=== PATIENT | male | born 1950 | race Caucasian/White ===

== ENCOUNTER → 2017-08-23 11:30 | Outpatient (CLI) | payer MEDICARE, SELFPAY ==
--- NOTE | 2017-08-23 | DI.CT.S_ITS ---
PROCEDURE: CT SOFT TISSUE NECK W CON INDICATIONS: NECK MASS TECHNIQUE: After the administration of intravenous contrast, 3.0 mm axial sections acquired from the sella to the aortic arch. Additional oblique axial 3.0 mm sections acquired through the pharynx. 3 mm thick coronal and sagittal reformats were generated. For radiation dose reduction, the following was used: automated exposure control. COMPARISON: [facility], [place], BIOPSY LYMPH NODE, 01/12/2016, 8:50. [facility], [place], SOFT TISSUE HEAD OR NECK, 12/31/2015, 11:49. [facility], CT, SOFT TISSUE NECK W CONTRAST, 03/14/2016, 10:10. FINDINGS: Image quality: / Lymph nodes: No enlarged lymph nodes seen throughout the neck. Vessels: Visualized vasculature appears patent. Neck spaces: The oropharynx, nasopharynx, and pharynx demonstrate no mucosal lesions. The vocal cords, false vocal cords, pyriform sinuses, epiglottis, vallecula, and tongue base all appear normal. Extramucosal spaces appear unremarkable. Glands: The parotid and submandibular glands appear normal on the right, and again noted is a mass lesion at the posterior border of the left parotid gland measuring up to 1.5 cm transverse, 1.8 cm AP and 2.4 cm craniocaudad. This does not represent a significant interval enlargement. Thyroid gland appears normal. Miscellaneous: Visualized brain and orbits appear normal. Lung apices appear clear. Superficial soft tissues appear normal. Bones: No suspicious bony lesions. Visualized sinuses and mastoids appear unremarkable. IMPRESSION: Posterior left parotid gland mass, measuring up to 1.5 x 1.8 x 2.4 cm in maximal transverse, AP and craniocaudad dimensions. No new lesion found. Quality of visualization is mildly limited by metal artifact from the localizing surface marker utilized to assist in identifying the structure. In my opinion ENT consultation for excisional biopsy likely is warranted unless this has already been addressed. Dictated by: Marcial Goodwin M.D. on 08/23/2017 at 13:25 Approved by: Marcial Goodwin M.D. on 08/23/2017 at 13:34
== END ==
PROVIDERS: Family Provider Otolaryngology; PCP Family Medicine; Visit Provider Otolaryngology
DX: R22.1 Localized swelling, mass and lump, neck (principal)
CPT/HCPCS: 70491; Q9967

== ENCOUNTER → 2017-08-27 10:02 | Outpatient (CLI) | payer MEDICARE, SELFPAY ==
--- NOTE | 2017-08-27 | DI.US.S_ITS ---
PROCEDURE: US ABD AORTA ANEURYSM SCREEN INDICATIONS: ABDOMINAL AORTIC ANEURYSM SCREENING TECHNIQUE: Real time scanning was performed of the aorta and iliac arteries, with image documentation. COMPARISON: None. FINDINGS: Aorta: Proximal aortic diameter measures 1.9 cm. Mid-aorta measures 1.9 cm. Distal aortic diameter is 2.1 cm. Iliac arteries: Right common iliac artery measures 0.9 cm. Left common iliac artery measures 0.9 cm. IMPRESSION: Abdominal aorta shows atheromatous plaque without aneurysm. Dictated by: Luis Waddell M.D. on 08/27/2017 at 10:39 Approved by: Luis Waddell M.D. on 08/27/2017 at 10:41
== END ==
PROVIDERS: PCP Family Medicine; Visit Provider Family Medicine
DX: Z13.6 Encounter for screening for cardiovascular disorders (principal); I70.0 Atherosclerosis of aorta
CPT/HCPCS: 76706

== ENCOUNTER → 2022-08-07 15:22 | Outpatient (ROUT) | payer MEDICARE, SELFPAY ==
[2022-08-07 16:09] LABS: Influenza A - CEPHEID Flu A NEGATIVE (NEGATIVE); Influenza B - CEPHEID Flu B NEGATIVE (NEGATIVE); Respiratory Syncytial Virus Negative (Negative)
[2022-08-07 16:49] LABS: COVID-19 CEPHEID 4-PLEX PCR Negative (Negative)
== END ==
PROVIDERS: Visit Provider Family Medicine
DX: R53.83 Other fatigue (principal); R05.1 Acute cough
CPT/HCPCS: 0241U

== ENCOUNTER 2023-08-05 17:07 | Inpatient (IN) | payer MEDICARE, SELFPAY ==
[2023-08-05 17:28] VITALS: BP 105/61; PULSE 87; RESP 19; TEMP 36.2; O2SAT 97; BMI 23.1
--- NOTE | 2023-08-05 17:37 | DI.RAD.S_ITS ---
PROCEDURE: XR CHEST 1V INDICATIONS: chest pain TECHNIQUE: One view of the chest was acquired. COMPARISON: None. FINDINGS: Surgical changes and devices: None. Lungs and pleura: Lungs are clear. No pleural effusions or pneumothorax. Mediastinum: Mediastinal contours appear normal. Heart size is normal. Bones and chest wall: No suspicious bony lesions. Age-appropriate bony degenerative changes are seen. Overlying soft tissues appear unremarkable. IMPRESSION: Portable chest within normal limits for age. Dictated by: David Farias M.D. on 08/05/2023 at 17:18 Approved by: Dvaid Farias M.D. on 08/05/2023 at 17:18
--- NOTE | 2023-08-05 17:37 | EKG_ITS ---
[place] [address] [address] [place] [id number] Test Date: 2023-08-05 Pat Name: Sergei Santoyo Department: [facility] Room: Gender: Male [employer]: DANISH : 1950 Requested By: Order Number: [id number] Reading MD: Jaylen Aquino Measurements Intervals [place] Rate: 82 P: 82 ID: [id number] QRS: -74 QRSD: 80 T: 66 QT: 356 QTc: 415 Interpretive Statements Normal sinus rhythm Left axis deviation Electronically Signed On 08-08-2023 18:31:54 PDT by Jaylen Aquino
[2023-08-05 18:14] LABS: Prothrombin Time 11.8 SECONDS (9.4-12.5)
[2023-08-05 18:15] LABS: Add Manual Diff / Slide Review NO; Basophils Absolute Auto 100 /uL (0-100); Basophils Percent Auto 0.8 % (0-2); Eosinophils Absolute Auto 100 /uL (0-450); Eosinophils Percent Auto 1.1 % (2-4); Hematocrit 42.1 % (41-53); Lymphocytes Absolute Auto 1700 /uL (1100-4500); Lymphocytes Percent Auto 13.1 % (25-40); Mean Corpuscular HGB Conc 33.1 % (30-36); Mean Corpuscular Hemoglobin 30.6 PG (26-34); Mean Corpuscular Volume 92.5 fL (80-100); Monocytes Absolute Auto 1400 /uL (0-900); Monocytes Percent Auto 11.1 % (3-14); Neutrophils Absolute Auto 9400 /uL (1500-7000); Neutrophils Percent Auto 73.9 % (50-75); Platelet Count 150 X10^3/uL (150-400); Red Blood Cell Count 4.56 X10^6/uL (4.5-5.9); Red Cell Distribution Width 14.5 % (11.6-14.8); White Blood Cell Count 12.7 X10^3/uL (4.5-11.0)
[2023-08-05 18:16] LABS: PTT Partial Thromboplastin Tim 34 SECONDS (25.1-36.5)
[2023-08-05 18:18] LABS: Alanine Aminotransferase 25 IU/L (<50); Albumin 4.5 g/dL (3.5-5.0); Albumin Globulin Ratio 1.3 (1.0-2.8); Alkaline Phosphatase 64 U/L (38-126); Aspartate Aminotransferase 48 IU/L (17-59); BUN Creatinine Ratio 23.7 (6-22); Bilirubin Total 0.7 mg/dL (0.2-1.3); Blood Urea Nitrogen 32 mg/dL (9-20); Calcium 9.3 mg/dL (8.4-10.2); Carbon Dioxide 22 mmol/L (22-32); Chloride 109 mmol/L (98-107); Creatine Kinase 676 U/L (55-170); Estimated Glomerular Filt Rate 56 mL/min (>60); Globulin 3.5 g/dL (1.7-4.1); Glucose 109 mg/dL (80-110); HEMOLYSIS < 15 (0-50); Lipase 157 U/L (23-300); Potassium 4.3 mmol/L (3.4-5.1); Sodium 141 mmol/L (137-145)
[2023-08-05 18:29] LABS: Troponin I 0.053 ng/mL (0.01-0.034)
--- NOTE | 2023-08-05 18:31 | ED_ITS ---
HPI - Fall General Chief Complaint: Fall Stated Complaint: Fall after losing balance, unable to walk now Time Seen by Provider: 08/05/23 18:16 History of Present Illness HPI Narrative: Patient is a 72-year-old male history of hypertension hyperlipidemia presenting today with significant left leg pain. He reports that he was walking up a hill he started walking really fast unable to stop when he fell landing on his knee tried to stay on up and then fell backwards on his bottom. He really has been unable to bear weight since. He has been sitting on the couch urinating in a bucket next to him. Not taking his medications because he can not get and walk. He did not hit his head or lose consciousness. He has not on anticoagulation medication but does take aspirin. He has no numbness or tingling. But he is really unable to lift his left leg and bear weight. Daughter at bedside states that the right is also a little bit weak. Sure if he has had fever but he did have chills today. He has no abdominal pain chest pain dizziness lightheadedness or other symptoms. Related Data Home Medications Medication Instructions Recorded Confirmed aspirin 81 mg DAILY 08/05/23 08/05/23 atorvastatin 40 mg tablet 40 mg PO DAILY 08/05/23 08/05/23 metoprolol tartrate 50 mg tablet 50 mg PO BID 08/05/23 08/05/23 Allergies Allergy/AdvReac Type Severity Reaction Status Date / Time Penicillins Allergy Verified 08/05/23 22:49 Patient History Social History household members: none Smoking Status: Current every day smoker Smoking Status: Current every day smoker tobacco type: cigarettes Substance Use Type: does not use Exam Initial Vital Signs Initial Vital Signs: Vital Signs Temperature 97.1 F L 08/05/23 17:28 Pulse Rate 87 08/05/23 17:28 Respiratory Rate 19 08/05/23 17:28 Blood Pressure 105/61 08/05/23 17:28 Pulse Oximetry 97 08/05/23 17:28 Oxygen Delivery Method Room Air 08/05/23 17:28 GENERAL: Alert pleasant well-appearing 72-year-old and in no acute distress. HEENT: Head atraumatic,EOMI, pupils reactive, face symmetric, moist mucous membranes CARDIOVASCULAR: Regular rate and rhythm without murmurs, rubs or gallops. RESPIRATORY: Breath sounds equal bilaterally, no wheezes rales or rhonchi. ABDOMEN: Soft, nontender. Normoactive bowel sounds all 4 quadrants. No guarding or rebound. BACK: Non tender EXTREMITIES: Normal range of motion, no clubbing or edema. Neurovascularly intact Left lower extremity abrasion noted on knee no significant effusion able to flex some lateral laxity negative anterior-posterior drawer. He is unable to lift his left leg off the gurney. Pelvis is stable.Non tender hip NEUROLOGICAL: Alert and oriented x4.Normal gait and speech. Cranial nerves II through XII grossly intact. [employer] strength equal bilaterally unable to lift left leg SKIN: Warm, dry, no laceration, no petechiae, no rashes or lesions. Course Orders Ordered: ED Orders 08/05/23 17:37 XR chest 1V Stat EKG-12 Lead Stat 08/05/23 18:00 Complete Blood Count AUTO DIFF Stat Comprehensive Metabolic Panel Stat Lipase Stat Magnesium Stat PTT Partial Thromboplastin Miguel Stat Prothrombin Time INR Stat Troponin & CK Cardiac Panel Stat 08/05/23 18:41 CT head/brain wo con Stat XR hip w pel if done LT 2V Stat XR knee LT 1to2V Stat 08/05/23 19:59 CT pelvis wo con Stat EKG-12 Lead Stat 08/05/23 20:05 Troponin & CK Cardiac Panel Stat Acetaminophen (Acetaminophen 325 Mg Tablet) 650 mg PO Q6H PRN PRN Reason: Fever/Mild Pain (1-3) Hydrocodone Bitart/Acetaminophen (Hydrocodone/Acet 5/325 Tablet) 1 tab PO Q6HR PRN PRN Reason: Pain, Moderate (4-6) Hydrocodone Bitart/Acetaminophen (Hydrocodone/Acet 5/325 Tablet) 2 tab PO Q6HR PRN PRN Reason: Pain, Severe (7-10) Sodium Chloride (Normal Saline 0.9%) 1,000 mls @ 125 mls/hr IV CONT BOGDAN Last Admin: 08/05/23 22:52 Dose: 125 mls/hr Documented By: AT Magnesium Hydroxide (Magnesium Hydroxide 30 Ml Udc) 30 ml PO DAILY PRN PRN Reason: Constipation Naloxone HCl (Naloxone 0.4 Mg/Ml Vial) 0.2 mg IV Q2MIN PRN PRN Reason: Opiate Reversal Ondansetron HCl (Ondansetron 4 Mg/2 Ml Inj) 4 mg IV Q8HR PRN PRN Reason: Nausea And Vomiting Discontinued Medications Sodium Chloride (Normal Saline 0.9%) 1,000 mls @ 1,000 mls/hr IV BOLUS ONE Stop: 08/05/23 19:31 Vital Signs Vital signs: Vital Signs - 8 hr 08/05/23 20:52 08/05/23 20:54 Pulse Rate 81 80 Respiratory Rate 19 19 Blood Pressure 141/66 H 145/69 H Pulse Oximetry 99 Oxygen Delivery Method Room Air Room Air MDM - Fall Lab Data 08/05/23 18:00 08/05/23 18:00 Labs: Lab Results 08/05/23 08/05/23 Range/Units 18:00 20:05 WBC 12.7 H (4.5-11.0) X10^3/uL RBC 4.56 (4.5-5.9) X10^6/uL Hgb 14.0 (13.5-17.5) g/dL Hct 42.1 (41-53) % MCV 92.5 (80-100) fL MCH 30.6 (26-34) PG MCHC 33.1 (30-36) % RDW 14.5 (11.6-14.8) % Plt Count 150 (150-400) X10^3/uL Neut % (Auto) 73.9 (50-75) % Lymph % (Auto) 13.1 L (25-40) % [place] % (Auto) 11.1 (3-14) % Eos % (Auto) 1.1 L (2-4) % Baso % (Auto) 0.8 (0-2) % Neut # (Auto) 9400 H (8393-5852) /uL Lymph # (Auto) 1700 (8885-8903) /uL [place] # (Auto) 1400 H (0-900) /uL Eos # (Auto) 100 (0-450) /uL Baso # (Auto) 100 (0-100) /uL PT 11.8 (9.4-12.5) SECONDS INR 1.0 (0.9-1.3) APTT 34 (25.1-36.5) SECONDS Sodium 141 (137-145) mmol/L Potassium 4.3 (3.4-5.1) mmol/L Chloride 109 H (98-107) mmol/L Carbon Dioxide 22 (22-32) mmol/L BUN 32 H (9-20) mg/dL Creatinine 1.35 H (0.66-1.25) mg/dL Estimated GFR 56 L (>60) mL/min BUN/Creatinine Ratio 23.7 H (6-22) Glucose 109 (80-110) mg/dL Calcium 9.3 (8.4-10.2) mg/dL Magnesium 2.0 (1.6-2.3) mg/dL Total Bilirubin 0.7 (0.2-1.3) mg/dL AST 48 (17-59) IU/L ALT 25 (<50) IU/L Alkaline Phosphatase 64 (38-126) U/L Total Creatine Kinase 676 H 568 H (55-170) U/L Troponin I 0.053 H 0.047 H (0.01-0.034) ng/mL Total Protein 8.0 (6.3-8.2) g/dL Albumin 4.5 (3.5-5.0) g/dL Globulin 3.5 (1.7-4.1) g/dL Albumin/Globulin Ratio 1.3 (1.0-2.8) Lipase 157 (23-300) U/L Imaging Data CT scan - head: Radiologist's Impression: PROCEDURE: CT HEAD/BRAIN WO CON INDICATIONS: fall TECHNIQUE: Noncontrast 4.5 mm thick angled axial sections acquired from the foramen magnum to the vertex, with coronal and sagittal reformats. For radiation dose reduction, the following was used: automated exposure control, adjustment of mA and/or kV according to patient size. COMPARISON: None. FINDINGS: Image quality: Diagnostic. CSF spaces: Basal cisterns are patent. No extra-axial fluid collections. The ventricles are symmetric but mildly enlarged diffusely. Brain: No intracranial bleeds or masses. There is cerebral volume loss for age, with resultant ventricular and sulcal prominence. There are moderate periventricular and deep white matter chronic small vessel ischemic changes. There is intracranial internal carotid artery atherosclerosis. Skull and face: Calvarium and visualized facial bones appear intact, without suspicious lesions. Sinuses: Visualized sinuses and mastoids are clear. IMPRESSION: 1. No CT evidence of acute intracranial trauma. 2. No significant soft tissue injury or underlying fracture. 3. Mild age related atrophy and white matter microvascular ischemic changes. 4. There is mild hydrocephalus, slightly greater than expected for degree of cerebral cortical volume loss. Consider normal-pressure hydrocephalus. Correlate with other clinical symptoms. Dictated by: Kirsten Weeks M.D. on 08/05/2023 at 19:14 Approved by: Kirsten Weeks M.D. on 08/05/2023 at 19:1 Extremity x-ray #1: Radiologist's Impression: PROCEDURE: XR HIP W PEL IF DONE LT 2V INDICATIONS: fall pain TECHNIQUE: AP pelvis with lateral view(s) of the left hip(s). COMPARISON: None. FINDINGS: Suboptimal views given patient positioning. Bones: Findings are suspicious for an impacted subcapital left femoral neck fracture seen as a line of trabecular condensation and subtle cortical breaks. Pelvis remains intact. There are mild symmetric degenerative changes in both femoroacetabular joints and sacroiliac joints. Soft tissues: The visualized bowel gas pattern is normal. No suspicious soft tissue calcifications. Mild peripheral vascular calcification. IMPRESSION: Findings suspicious for impacted, nondisplaced left subcapital femoral neck fracture. Dictated by: Kirsten Weeks M.D. on 08/05/2023 at 19:23 Extremity x-ray #2: Radiologist's Impression: PROCEDURE: XR KNEE LT 1TO2V INDICATIONS: pain fall TECHNIQUE: 2 views of the knee were acquired. COMPARISON: None. FINDINGS: Bones: No fractures or dislocations. No suspicious bony lesions. Soft tissues: No joint effusion. No suspicious soft tissue calcifications. Scattered peripheral vascular calcification. IMPRESSION: No acute bony abnormality or significant effusion. Dictated by: Kirsten Weeks M.D. on 08/05/2023 at 19:21 Chest x-ray: Radiologist's Impression: PROCEDURE: XR CHEST 1V INDICATIONS: chest pain TECHNIQUE: One view of the chest was acquired. COMPARISON: None. FINDINGS: Surgical changes and devices: None. Lungs and pleura: Lungs are clear. No pleural effusions or pneumothorax. Mediastinum: Mediastinal contours appear normal. Heart size is normal. Bones and chest wall: No suspicious bony lesions. Age-appropriate bony degenerative changes are seen. Overlying soft tissues appear unremarkable. IMPRESSION: Portable chest within normal limits for age. Dictated by: David Farias M.D. on 08/05/2023 at 17:18 CT Pelvis: Radiologist's Impression: PROCEDURE: CT PEL WO CON INDICATIONS: ? left hip fracture TECHNIQUE: Noncontrast 3 mm axial sections acquired through the bony pelvis, with coronal and sagittal reformatting. COMPARISON: [facility], CR, XR HIP W PEL IF DONE LT 2V, 08/05/2023, 18:55. FINDINGS: Image quality: Diagnostic Bones: There is a mildly displaced, mildly impacted fracture involving the subcapital region of the left femoral neck. Remainder of the visualized osseous structures appear intact. Visualized bony pelvis appears intact. Lower lumbar spondylosis. No sacroiliac joint diastasis. No suspicious osseous lesions. Soft tissues: No significant joint effusion on the left. No pelvic free fluid. No pelvic sidewall adenopathy. Prostatomegaly. Urinary bladder appears unremarkable. Visualized segments of small bowel and colon appear unremarkable. Colonic diverticulosis without acute diverticulitis. There is a fat-containing umbilical hernia without acute inflammation. IMPRESSION: Mildly displaced and impacted fracture of the subcapital region of the left femoral neck. Dictated by: Dariel Kincaid M.D. on 08/05/2023 at 20:50 ECG Data Attestation: I personally reviewed and interpreted this ECG as follows: Prior ECG tracings: not available for review Interpretation: Normal sinus rhythm rate 82 TX interval 192 QRS [address] changes no ischemia prior she compare Repeat EKGs sinus rhythm with PVC no ischemia MDM Narrative Medical decision making narrative: MDM CC: Left knee pain unable to bear weight Complicating co-morbidities: Hypertension hyperlipidemia Corroborating data: Daughter Medical records reviewed: yes Differential considered: CVA, hip fracture, sepsis, vertebral fracture Exam documented above, pertinent findings include: Awake alert pleasant 72-year-old male no focal deficits NIH stroke scale 0 able to do [id number] bilaterally, knee is stable no significant effusion Lab Test results independently reviewed as above. Pertinent findings: WBC 12.7, hemoglobin 14, hematocrit 42 platelets 150, creatinine elevated 1.35 previously 1.1, CPK 676 and troponin 0.053 with repeat 0.047 Independently reviewed EKG as above no ischemia Imaging studies independently reviewed: Left femoral neck fracture Consultations: Dr. Ozuna updated on patient's symptoms test results NPO after midnight and will go to OR tomorrow Dr. Deleon updated patient's symptoms test results and accepts patient Treatments: Patient is not requiring any sort of pain medication here in the ED. He took his home metoprolol and atorvastatin has not been able to take those for a couple of days. Re-evaluations: Discussion: 72-year-old male presents today with left knee pain inability to bear weight after a fall a few days ago. He was found to have a femoral neck fracture. He has been really nonambulatory for a couple of days he has absolutely no sort of chest pain or shortness of breath. Troponins are found to be indeterminate without any sort of ischemia. Suspect that this maybe from some mild dehydration his creatinine is also up at 1.3. He is completely asymptomatic. He has not hypoxic hypotensive or tachycardic. He has no known coronary artery disease. Low suspicion for pulmonary embolism. Metoprolol tartrate 50 mg twice a day Atorvastatin 40 mg once daily Discharge Plan Departure Patient Disposition: Admitted As Inpatient Clinical Impression: Closed left hip fracture, Elevated troponin Admit Date/Time: 08/05/23 21:27 Admit Provider: Bogdan Deleon
--- NOTE | 2023-08-05 18:41 | DI.RAD.S_ITS ---
PROCEDURE: XR HIP W PEL IF DONE LT 2V INDICATIONS: fall pain TECHNIQUE: AP pelvis with lateral view(s) of the left hip(s). COMPARISON: None. FINDINGS: Suboptimal views given patient positioning. Bones: Findings are suspicious for an impacted subcapital left femoral neck fracture seen as a line of trabecular condensation and subtle cortical breaks. Pelvis remains intact. There are mild symmetric degenerative changes in both femoroacetabular joints and sacroiliac joints. Soft tissues: The visualized bowel gas pattern is normal. No suspicious soft tissue calcifications. Mild peripheral vascular calcification. IMPRESSION: Findings suspicious for impacted, nondisplaced left subcapital femoral neck fracture. Dictated by: Kirsten Weeks M.D. on 08/05/2023 at 19:23 Approved by: Kirsten Weeks M.D. on 08/05/2023 at 19:26
--- NOTE | 2023-08-05 18:41 | DI.CT.S_ITS ---
PROCEDURE: CT HEAD/BRAIN WO CON INDICATIONS: fall TECHNIQUE: Noncontrast 4.5 mm thick angled axial sections acquired from the foramen magnum to the vertex, with coronal and sagittal reformats. For radiation dose reduction, the following was used: automated exposure control, adjustment of mA and/or kV according to patient size. COMPARISON: None. FINDINGS: Image quality: Diagnostic. CSF spaces: Basal cisterns are patent. No extra-axial fluid collections. The ventricles are symmetric but mildly enlarged diffusely. Brain: No intracranial bleeds or masses. There is cerebral volume loss for age, with resultant ventricular and sulcal prominence. There are moderate periventricular and deep white matter chronic small vessel ischemic changes. There is intracranial internal carotid artery atherosclerosis. Skull and face: Calvarium and visualized facial bones appear intact, without suspicious lesions. Sinuses: Visualized sinuses and mastoids are clear. IMPRESSION: 1. No CT evidence of acute intracranial trauma. 2. No significant soft tissue injury or underlying fracture. 3. Mild age related atrophy and white matter microvascular ischemic changes. 4. There is mild hydrocephalus, slightly greater than expected for degree of cerebral cortical volume loss. Consider normal-pressure hydrocephalus. Correlate with other clinical symptoms. Dictated by: Kirsten Weeks M.D. on 08/05/2023 at 19:14 Approved by: Kirsten Weeks M.D. on 08/05/2023 at 19:16
--- NOTE | 2023-08-05 18:41 | DI.RAD.S_ITS ---
PROCEDURE: XR KNEE LT 1TO2V INDICATIONS: pain fall TECHNIQUE: 2 views of the knee were acquired. COMPARISON: None. FINDINGS: Bones: No fractures or dislocations. No suspicious bony lesions. Soft tissues: No joint effusion. No suspicious soft tissue calcifications. Scattered peripheral vascular calcification. IMPRESSION: No acute bony abnormality or significant effusion. Dictated by: Kirsten Weeks M.D. on 08/05/2023 at 19:21 Approved by: Kirsten Weeks M.D. on 08/05/2023 at 19:22
--- NOTE | 2023-08-05 19:59 | EKG_ITS ---
[address] [address] Test Date: 2023-08-05 Pat Name: Sergei Santoyo Department: Room: Gender: Male [employer]: GUME : 1950 Requested By: Order Number: [id number] Reading MD: Jaylen Aquino Measurements Intervals [place] Rate: 86 P: 89 [place]: 194 QRS: -75 QRSD: 88 T: 73 QT: 362 QTc: 433 Interpretive Statements Sinus rhythm with occasional premature ventricular complexes Left anterior fascicular block Electronically Signed On 08-08-2023 18:31:59 PDT by Jaylen Aquino
--- NOTE | 2023-08-05 19:59 | DI.CT.S_ITS ---
PROCEDURE: CT PEL WO CON INDICATIONS: ? left hip fracture TECHNIQUE: Noncontrast 3 mm axial sections acquired through the bony pelvis, with coronal and sagittal reformatting. COMPARISON: [facility], CR, XR HIP W PEL IF DONE LT 2V, 08/05/2023, 18:55. FINDINGS: Image quality: Diagnostic Bones: There is a mildly displaced, mildly impacted fracture involving the subcapital region of the left femoral neck. Remainder of the visualized osseous structures appear intact. Visualized bony pelvis appears intact. Lower lumbar spondylosis. No sacroiliac joint diastasis. No suspicious osseous lesions. Soft tissues: No significant joint effusion on the left. No pelvic free fluid. No pelvic sidewall adenopathy. Prostatomegaly. Urinary bladder appears unremarkable. Visualized segments of small bowel and colon appear unremarkable. Colonic diverticulosis without acute diverticulitis. There is a fat-containing umbilical hernia without acute inflammation. IMPRESSION: Mildly displaced and impacted fracture of the subcapital region of the left femoral neck. Dictated by: Dariel Kincaid M.D. on 08/05/2023 at 20:50 Approved by: Dariel Kincaid M.D. on 08/05/2023 at 20:55
[2023-08-05 20:25] LABS: Creatine Kinase 568 U/L (55-170)
[2023-08-05 20:38] LABS: Troponin I 0.047 ng/mL (0.01-0.034)
[2023-08-05 20:52] VITALS: BP 141/66; PULSE 81; RESP 19
[2023-08-05 20:54] VITALS: BP 145/69; PULSE 80; RESP 19; O2SAT 99
[2023-08-05 22:15] VITALS: BP 143/66; PULSE 85; RESP 16; TEMP 36.9; O2SAT 98
[2023-08-05 22:30] VITALS: BP 137/60; PULSE 75; RESP 18; TEMP 36.1; O2SAT 96; BMI 23.1
[2023-08-05] MEDS: SODIUM CHLORIDE 0.9% 1,000 ML 125 ML IV (22:52)
[2023-08-06] VITALS (13 sets, daily range): BP systolic 101–138; BP diastolic 40–80; PULSE 58–78; RESP 11–24; TEMP 36.1–36.7; O2SAT 93–99; BMI 23.1
--- NOTE | 2023-08-06 | DI.RAD.S_ITS ---
PROCEDURE: XR HIP W PEL IF DONE LT 2V INDICATIONS: POST OP TECHNIQUE: 2 view(s) of the hip acquired. COMPARISON: [facility], [place], XR HIP W PEL IF DONE LT 2V, 08/05/2023, 18:55. FINDINGS: Bones: Patient is status post left hip arthroplasty, with hardware components in expected positions. The hip joint appears congruent. The visualized bony structures appear intact. Soft tissues: Overlying postoperative changes are noted. No suspicious soft tissue densities. IMPRESSION: Expected post-operative appearance of a hip arthroplasty. Approved by: Edgar Cook M.D. on 08/06/2023 at 17:05
[2023-08-06] MEDS: SODIUM CHLORIDE 0.9% 1,000 ML 125 ML IV (06:17)
[2023-08-06 06:40] LABS: Add Manual Diff / Slide Review NO; Basophils Absolute Auto 100 /uL (0-100); Basophils Percent Auto 0.9 % (0-2); Eosinophils Absolute Auto 300 /uL (0-450); Eosinophils Percent Auto 3.3 % (2-4); Hematocrit 36.4 % (41-53); Hemoglobin 12.3 g/dL (13.5-17.5); Lymphocytes Absolute Auto 1700 /uL (1100-4500); Lymphocytes Percent Auto 20.3 % (25-40); Mean Corpuscular HGB Conc 33.7 % (30-36); Mean Corpuscular Hemoglobin 31.1 PG (26-34); Monocytes Absolute Auto 800 /uL (0-900); Monocytes Percent Auto 9.9 % (3-14); Neutrophils Absolute Auto 5500 /uL (1500-7000); Neutrophils Percent Auto 65.6 % (50-75); Platelet Count 131 X10^3/uL (150-400); Red Blood Cell Count 3.95 X10^6/uL (4.5-5.9); Red Cell Distribution Width 14.1 % (11.6-14.8); White Blood Cell Count 8.4 X10^3/uL (4.5-11.0)
[2023-08-06 06:51] LABS: BUN Creatinine Ratio 31.5 (6-22); Blood Urea Nitrogen 29 mg/dL (9-20); Calcium 8.2 mg/dL (8.4-10.2); Carbon Dioxide 25 mmol/L (22-32); Chloride 113 mmol/L (98-107); Estimated Glomerular Filt Rate > 60 mL/min (>60); Glucose 100 mg/dL (80-110); HEMOLYSIS < 15 (0-50); Potassium 4.2 mmol/L (3.4-5.1); Sodium 140 mmol/L (137-145)
[2023-08-06 07:03] LABS: Troponin I 0.039 ng/mL (0.01-0.034)
--- NOTE | 2023-08-06 10:18 | PT-IP ANOTE ---
Discussed pt in rounds and PT reviewed chart and pt found to have nondisplaced left subcapital femoral neck fracture. Awaiting ortho consult/consult note and possible surgery. Will d/c PT order and initiate PT post-op when re-ordered.
[2023-08-06] MEDS: METOPROLOL IR 50 MG TABLET PO ×2 (10:45→20:09)
--- NOTE | 2023-08-06 12:09 | PM.HP.1 ---
History of Present Illness History of Present Illness Date Patient Seen: 08/06/23 Time Patient Seen: 09:50 Date of Onset of Symptoms: 08/02/23 Chief complaint: Fall after losing balance, unable to walk now Narrative: CC: unable to walk GLF backwards with pain unable to bear weight on L leg since. XR shows L femur fracture. Pain is ok as long as he doesn't move. Planning operative repair today if possible. [facility] Social History household members: none Smoking Status: Current every day smoker Meds Home Medications and Allergies Home Medications Medication Instructions Recorded Confirmed Type aspirin 81 mg DAILY 08/05/23 08/05/23 History atorvastatin 40 mg tablet 40 mg PO DAILY 08/05/23 08/05/23 History metoprolol tartrate 50 mg tablet 50 mg PO BID 08/05/23 08/05/23 History Allergies Allergy/AdvReac Type Severity Reaction Status Date / Time Penicillins Allergy Verified 08/05/23 22:49 Review of Systems Review of Systems Narrative: all systems reviewed and negative except as otherwise documented in HPI Exam Vital Signs (past 8 hours): - 08/06/23 05:07 08/06/23 10:46 Temperature 97.9 F Pulse Rate 76 67 Respiratory Rate 18 16 Blood Pressure 118/66 129/40 L Pulse Oximetry 98 Oxygen Flow Rate 0 Oxygen Delivery Method Room Air Oxygen Flow Rate 0 HENMT Other: normocephalic atraumatic Resp Other: clear to auscultation bilaterally on room air Cardio Other: regular rate, well perfused GI Other: active bowel sounds nontender Extrem Other: leg length discrepancy no pain if he doesn't move L leg, distal NV intact Objective Labs 08/06/23 06:24 08/06/23 06:24 Labs: Laboratory Results - last 24 hr 08/05/23 08/05/23 08/06/23 18:00 20:05 06:24 WBC 12.7 H 8.4 RBC 4.56 3.95 L Hgb 14.0 12.3 L Hct 42.1 36.4 L MCV 92.5 92.0 MCH 30.6 31.1 MCHC 33.1 33.7 RDW 14.5 14.1 Plt Count 150 131 L Neut % (Auto) 73.9 65.6 Lymph % (Auto) 13.1 L 20.3 L [place] % (Auto) 11.1 9.9 Eos % (Auto) 1.1 L 3.3 Baso % (Auto) 0.8 0.9 Neut # (Auto) 9400 H 5500 Lymph # (Auto) 1700 1700 [place] # (Auto) 1400 H 800 Eos # (Auto) 100 300 Baso # (Auto) 100 100 PT 11.8 INR 1.0 APTT 34 Sodium 141 140 Potassium 4.3 4.2 Chloride 109 H 113 H Carbon Dioxide 22 25 BUN 32 H 29 H Creatinine 1.35 H 0.92 Estimated GFR 56 L > 60 BUN/Creatinine Ratio 23.7 H 31.5 H Glucose 109 100 Calcium 9.3 8.2 L Magnesium 2.0 Total Bilirubin 0.7 AST 48 ALT 25 Alkaline Phosphatase 64 Total Creatine Kinase 676 H 568 H Troponin I 0.053 H 0.047 H 0.039 H Total Protein 8.0 Albumin 4.5 Globulin 3.5 Albumin/Globulin Ratio 1.3 Lipase 157 Assessment & Plan Assessment & Plan narrative: #L hip fracture, closed, initial mgmt per ortho, NPO after midnight today in anticipation of OR Pain control doing ok if he doesn't move #hypertension resume home meds, doing ok #hx of cardiac stent stable continue home statin and asa 81 after surgery Dispo: admit for operative repair of hip PCP: Naomi Code: DNR diet: NPO for OR MDM: Arabella [phone]
[2023-08-06] MEDS: LACTATED RINGERS 1,000 ML 42 ML IV ×2 (13:16→14:37)
--- NOTE | 2023-08-06 13:19 | P.HP_ITS ---
History of Present Illness History of Present Illness Date Patient Seen: 08/06/23 Time Patient Seen: 07:30 Date of Onset of Symptoms: 08/04/23 Chief complaint: Fall after losing balance, unable to walk now Narrative: This is a 72-year-old gentleman who fell several days ago and landed on his left knee and noted some left knee and left hip pain. He had continued pain. He tried to get by at home but family came by her father's day and noticed that he was having significantly impaired walking. He normally walks long distance. He is otherwise reasonably healthy. He notes ongoing pain in the left leg and difficulty with walking. His pain is mainly in his knee but there are some into his left hip. He denies loss of consciousness he was not dizzy or lightheaded prior to his fall. [facility] Social History household members: none Smoking Status: Current every day smoker Meds Home Medications and Allergies Home Medications Medication Instructions Recorded Confirmed Type aspirin 81 mg DAILY 08/05/23 08/05/23 History atorvastatin 40 mg tablet 40 mg PO DAILY 08/05/23 08/05/23 History metoprolol tartrate 50 mg tablet 50 mg PO BID 08/05/23 08/05/23 History Allergies Allergy/AdvReac Type Severity Reaction Status Date / Time Penicillins Allergy Verified 08/05/23 22:49 Exam Vital Signs (past 8 hours): - 08/06/23 10:46 08/06/23 13:10 Temperature 97.9 F Pulse Rate 67 58 L Respiratory Rate 16 24 Blood Pressure 129/40 L 122/60 Pulse Oximetry 99 Oxygen Delivery Method Room Air Oxygen Delivery Method Room Air Oxygen Flow Rate 0 Narrative Exam Narrative: He is alert he is oriented HEENT is benign, lungs are clear cor regular rate and rhythm abdomen soft and benign examination of his left lower extremity shows his skin is intact. He has significant pain with attempted range of motion in his left hip, he does have some pain with gentle range of motion his left knee there is a small abrasion in the prepatellar area he can fire his toe flexors and extensors distally calves soft bilaterally Objective Labs 08/06/23 06:24 08/06/23 06:24 Labs: Laboratory Results - last 24 hr 08/05/23 08/05/23 08/06/23 18:00 20:05 06:24 WBC 12.7 H 8.4 RBC 4.56 3.95 L Hgb 14.0 12.3 L Hct 42.1 36.4 L MCV 92.5 92.0 MCH 30.6 31.1 MCHC 33.1 33.7 RDW 14.5 14.1 Plt Count 150 131 L Neut % (Auto) 73.9 65.6 Lymph % (Auto) 13.1 L 20.3 L [place] % (Auto) 11.1 9.9 Eos % (Auto) 1.1 L 3.3 Baso % (Auto) 0.8 0.9 Neut # (Auto) 9400 H 5500 Lymph # (Auto) 1700 1700 [place] # (Auto) 1400 H 800 Eos # (Auto) 100 300 Baso # (Auto) 100 100 PT 11.8 INR 1.0 APTT 34 Sodium 141 140 Potassium 4.3 4.2 Chloride 109 H 113 H Carbon Dioxide 22 25 BUN 32 H 29 H Creatinine 1.35 H 0.92 Estimated GFR 56 L > 60 BUN/Creatinine Ratio 23.7 H 31.5 H Glucose 109 100 Calcium 9.3 8.2 L Magnesium 2.0 Total Bilirubin 0.7 AST 48 ALT 25 Alkaline Phosphatase 64 Total Creatine Kinase 676 H 568 H Troponin I 0.053 H 0.047 H 0.039 H Total Protein 8.0 Albumin 4.5 Globulin 3.5 Albumin/Globulin Ratio 1.3 Lipase 157 x-rays show a left femoral neck fracture which is impacted but a high femoral neck fracture subcapital region it is visible on the plain x-ray and the CT scan his left knee x-rays do not show evidence of a fracture. Assessment & Plan Assessment and plan (1) Closed left hip fracture: Status: Acute (2) Elevated troponin: Status: Acute (3) Subcapital fracture of left femur: Status: Acute Plan I have recommended operative fixation of his left hip with a probable left hip unipolar. He is normally a good ambulator I told him we can assess his acetabulum at the time of surgery. If he has any arthritic wear we will go ahead and proceed with a left total hip arthroplasty. The procedure options risks benefits and complications were discussed in detail. He understands and agrees and we are going to proceed with that. We discussed need for postoperative rehab concerns regarding full weight-bearing but restricted activities with posterior hip precautions to provoke to avoid dislocation. Risk of bleeding infection and anesthetic complications discussed. He understands and agrees and we are going to proceed with that today.
--- NOTE | 2023-08-06 13:24 | PM.OP.1 ---
Operative Date/Time/Diagnoses Date of procedure: 08/06/23 Time of procedure: 13:30 Pre-op diagnosis: Left femoral neck fracture Post-op diagnosis: same Procedure & Clinicians Procedure: Left hip unipolar Same procedure as scheduled: Yes Indications: The patient fell at home and sustained a displaced but impacted left femoral neck fracture. He is brought the operating room for a left hip unipolar possible total hip replacement. The risks, benefits and alternatives to surgery were discussed with the patient prior to proceeding. Risks discussed included, but were not limited to, failure to relieve pain, leg length discrepancy, dislocation, stiffness, infection, nerve damage, deep venous thrombosis, pulmonary embolism, stroke, coma, heart attack, permanent paralysis and , as well as the potential need for eventual revision of the prosthetic. Surgeon: Rosanne Ozuna Studio Operation Engineer: Orlando Moore Anesthesia Type: General Operative Notes Findings: Adequate bone, good stability, no significant articular wear in the acetabulum Closure Type: primary Specimen(s): none sent Prosthetic devices, grafts, tissues, transplants, or devices: Ozuna [employer]hew size 16 cemented Synergy standard offset, 53 mm femoral head, +4 sleeve, 12 mm distal cement restrictor Estimated Blood Loss (mL): 250 Blood products transfused: none Procedure in detail: The patient was seen in the pre-operative area, where the patient identified the left hip as the operative site and this was marked with my initials. The patient received pre-operative antibiotics and was taken to the operating room and placed on the operative table in the supine position after satisfactory anesthesia. A laborer vegetable farm out was performed. Patient was placed in the lateral decubitus position and all bony prominences were carefully padded and the arms were appropriately position. A PA was used during the procedure and was essential for intraoperative retraction and safe implantation of the components. The left lower extremity was prepared from the ankle to the iliac crest with ChloroPrep in the usual fashion and draped through sterile drapes. The hip was approached through posterolateral approach. Dissection was carried out down through skin and subcutaneous tissues. The fascia was opened. Gelpi retractors were placed. A Charnley retractor was placed. A small amount of inflamed bursa was resected. The piriformis was identified and protected. The other short external rotators and capsule were carefully stripped from the posterior aspect of the femur. They were tagged and carefully retracted. The femoral neck was brought up and an osteotomy was made of the residual femoral neck approximately 1 fingerbreadth above the lesser trochanter. The head was removed without difficulty. It was carefully sized. The acetabulum was meticulously irrigated with normal saline. There were minimal to no changes in the acetabulum. The acetabulum was carefully protected with an E tape. The canal was opened with a box cutting osteotome, followed by a T-handled reamer and a lateralizing reamer. The tapered reamers were then used, followed by sequential broaching. A trial head and neck were then placed and the hip relocated and checked for leg length and stability. The patient was stable in the position of sleep, of squatting, and could be put through a range of motion with 45 degrees internal rotation without dislocation. At 90 degrees flexion, internal rotation to 80? was possible before dislocation. This was felt to be satisfactory and the appropriate components were opened, and the trials were removed. The femoral canal was sized and a distal cement restrictor was placed. The bone was meticulously cleaned with pulse lavage. The canal was packed with vaginal packing with epinephrine. Antibiotics cement was mixed and carefully pressurized into the femoral canal. The femoral component was placed without difficulty. A repeat trial reduction showed good range of motion and stability. We did a brief Betadine soak after the cement had hardened. Patient had good range of motion and stability. The final head and neck were placed after carefully irrigating the wound. The capsulomuscular flap was then repaired to the greater trochanter though an awl hole using the tag sutures. The short external rotators were repaired with black braided nylon. The fascia tiffanie was closed with interrupted Vicryl. The subcutaneous layer was closed with interrupted 3-0 Vicryl, and the skin with a running 3-0 V-Lock suture and surgical glue. An Aquacel Ag dressing was applied and the patient was taken to recovery having tolerated the procedure well. Complications: none Post-operative Condition: stable Disposition: Acute Care Plan for aftercare: The patient will be maintained on a standard total hip replacement protocol with weight bearing as tolerated and posterior hip precautions. The patient will receive Aspirin and sequential compression devices for DVT prophylaxis. The patient will be discharged home when safe for the home environment.
--- NOTE | 2023-08-06 13:56 | CM.DANOTE ---
DCP Assessment note pt is a 72yo M resident of [place] here following a left femur fracture after GLF. Pt to get surgery today Sunday. with Dr. Ozuna PCP Dr. Salgado Payer Medicare and self pay. JOURNEYMAN MILLWRIGHT reviewed EMR. Pt off floor in surgery when this JOURNEYMAN MILLWRIGHT attempted assessment. Per UR RN, pt meets criteria for INPT status. Per ED note, dtr was at bedside in the ED. Per RN report, pt lives alone in [place] but has lots of local family supports. Indep/active at baseline. Pt hopeful for home but has lots of stairs. Per RN, pt acknowledges there may be a possibility of needing SNF rehab prior to returning home. PT/OT recs pending post op. P: DCP to follow post op recs/pt preference. CM team will follow closely. EDD Crane Discharge Planning/Care Management CM Discharge Assessment Start: 08/06/23 13:54 Freq: Status: Active Protocol: Document 08/06/23 13:54 SL (Rec: 08/06/23 13:56 [id number]) Discharge Planning Assessment Assigned Position Description Manager EDD Harding DPOA/Assigned Designee Name family Arabella Contact Information [phone] Advance Directives? No History Provided By Patient Prior Living Arrangements House Household Members none Type of transporation used prior to Drives own vehicle admit Independent with ADL's Yes Is patient alert and oriented? Yes Discharge Plan Home Transportation Arrangement pt hopeful for home, likely family will assist with transport. if SNF needed, facility transport Additional Comment pending post OP needs and recs Whiteboard Updated in Patient Room with No name and ext. # of Position Description Manager Review Status In Process Please Provide Date Initial DC 08/06/23 Assessment Was Performed Next Review Type Continued Stay Review
[2023-08-06] MEDS: CEFAZOLIN 2 GM/100 ML PREMIX 100 ML IV ×2 (14:00→22:13)
[2023-08-06] MEDS: TRANEXAMIC ACID 1,000 MG in SODIUM CHLORIDE 0.9% 100 ML 200 MG IV (14:05)
--- NOTE | 2023-08-06 14:23 | SUR.OPER ---
Lateral on padded OR bed. Gel axillary roll. Arms secured on padded armboard with pillow supporting top arm. Padded hip positioner braces x4 - anterior and posterior chest and pelvis. Additional gel pad used anterior pelvis. Gel pad under bottom leg from knee to foot and secured with tape over sheet.
--- NOTE | 2023-08-06 14:45 | DI.RAD.S_ITS ---
PROCEDURE: XR PELVIS 1-2V INDICATIONS: SURGERY TECHNIQUE: Intra-operative view of the pelvis and hip acquired. COMPARISON: None. FINDINGS: Bones: Intraoperative devices prior to placement of arthroplasty prostheses are in expected positions. No fractures or suspicious bony lesions. Soft tissues: Overlying surgical retractors are present, along with other intraoperative changes. IMPRESSION: Single intraoperative view of a left hip arthroplasty. Dictated by: Roxane Celis M.D. on 08/06/2023 at 16:16 Approved by: Roxane Celis M.D. on 08/06/2023 at 16:16
[2023-08-06] MEDS: BUPIVACAINE 0.25% (PF) 30 ML, EPINEPHrine 0.15 MG INJ (15:02)
[2023-08-06] MEDS: BUPIVACAINE LIPOSOME 266 MG/20 ML VIAL INJ (15:05)
--- NOTE | 2023-08-06 16:51 | SUR.PHASEI ---
PT TRANSFERED BACK TO FLOOR, BEDSIDE NURSE HANDOFF
[2023-08-06] MEDS: LACTATED RINGERS 1,000 ML 100 ML IV (17:07)
[2023-08-06] MEDS: ASPIRIN EC 81 MG TABLET PO (20:09)
[2023-08-06] MEDS: DOCUSATE 100 MG CAPSULE PO (20:09)
[2023-08-07 00:20] VITALS: BP 133/62; PULSE 63; RESP 17; TEMP 36.4; O2SAT 97
[2023-08-07 05:19] VITALS: BP 139/64; PULSE 63; RESP 18; TEMP 36.2; O2SAT 99
[2023-08-07 05:31] LABS: Hemoglobin 10.6 g/dL (13.5-17.5)
[2023-08-07] MEDS: CEFAZOLIN 2 GM/100 ML PREMIX 100 ML IV (05:38)
--- NOTE | 2023-08-07 07:30 | PM.PNPO.1 ---
Subjective Subjective Date Patient Seen: 08/07/23 Time Patient Seen: 07:31 Interval history: Patient states his pain is mild. Denies any fever or chills. No nausea or vomiting. Patient has not been out of bed since surgery. Patient lives alone with several steps in his house. Patient has a daughter who lives locally who was trying to arrange to assist him at home. Exam Vital Signs (past 8 hours): - 08/07/23 00:20 08/07/23 05:19 Temperature 97.6 F 97.2 F L Pulse Rate 63 63 Respiratory Rate 17 18 Blood Pressure 133/62 139/64 Pulse Oximetry 97 99 Oxygen Flow Rate 0 0 Oxygen Delivery Method Room Air Oxygen Flow Rate 0 Narrative Exam Narrative: 72-year-old male resting comfortably in bed in no apparent distress. Left hip dressing is clean, dry and intact. Neurovascular status is intact distal left lower extremity. Const General: cooperative and comfortable Nutritional Appearance: average body habitus Resp Effort & Inspection: normal respiratory effort and able to speak in complete sentences Objective Labs 08/07/23 05:24 08/06/23 06:24 Labs: Laboratory Results - last 24 hr 08/07/23 05:24 Hgb 10.6 L Hct 32.0 L PFSH Social History household members: none Smoking Status: Current every day smoker Assessment & Plan Post-op Postoperative Procedures: Procedures Operation Date: 08/06/23 13:00 Actual Procedure Side Surgeon p LEFT HIP CONCHA REPLACEMENT Left Rosanne Ozuna MD Postoperative day: 1 Postoperative status: doing well Postoperative status narrative: Stable status post left hip unipolar Postoperative plan narrative: Standard total hip replacement protocol with weight-bearing as tolerated and posterior hip precautions Aspirin 81 mg b.i.d. for DVT prophylaxis Multimodal pain management Mobilize with physical therapy Discharge when medically stable and safe for home environment
[2023-08-07 08:00] VITALS: BP 138/53; PULSE 68; RESP 18; TEMP 36.2; O2SAT 99
[2023-08-07] MEDS: ASPIRIN EC 81 MG TABLET PO ×2 (08:33→20:13)
[2023-08-07] MEDS: METOPROLOL IR 50 MG TABLET PO ×2 (08:34→20:14)
[2023-08-07 09:20] LABS: Blood Urea Nitrogen 20 mg/dL (9-20); Calcium 8.4 mg/dL (8.4-10.2); Carbon Dioxide 23 mmol/L (22-32); Chloride 109 mmol/L (98-107); Estimated Glomerular Filt Rate > 60 mL/min (>60); Glucose 100 mg/dL (80-110); HEMOLYSIS < 15 (0-50); Potassium 4.3 mmol/L (3.4-5.1); Sodium 134 mmol/L (137-145)
--- NOTE | 2023-08-07 10:05 | PT.IIE ---
Current Diagnoses Other specified abnormal findings of blood chemistry (08/05/23) Fracture of unspecified part of neck of left femur, initial encounter for closed fracture (08/05/23) Unspecified intracapsular fracture of left femur, initial encounter for closed fracture (08/05/23) Surgery Performed Operation Date: 08/06/23 13:00 Actual Procedures p LEFT HIP CONCHA REPLACEMENT(Left) - Rosanne Ozuna MD Physical Therapy Inpatient Evaluation/Re-Eval M1 PT/OT-IP Prior Functional Status Start: 08/07/23 12:11 Freq: NEEDED Status: Active Protocol: Document 08/07/23 10:05 AB (Rec: 08/07/23 12:40 AB [id number]) Medical Review Prior Functional Status Medical History Reviewed Yes Communication able to make needs known; has memory issues Mobility and Gait pt stated that he was modified independent with all mobilities and ambulation using a SPC. pt stated that he started using a SPC earlier this year due to his falls. stated that he had ~ 3 falls for the year. pt is a poor historian and seems to have cognitive/memory issues and does not give definitive answers to questions Social History Household Members none Living Arrangements House Number of Floors (Floors) Two Floors Number of Stairs To Enter/Railing? pt lives on a split level house: 1 step to enter from the garage and 7 steps R rail ascending to main level of the house Home Environment Standard Height Toilet,Tub/ Shower Home Equipment Straight Cane Additional Social History Comment pt stated that his daughter will be staying with hime for ~ 2 days to assist him. M2 PT-IP Current Condition Start: 08/07/23 12:11 Freq: NEEDED Status: Active Protocol: Document 08/07/23 10:05 AB (Rec: 08/07/23 12:40 AB [id number]) Physical Therapy Current Condition Current Condition Evaluation Date 08/07/23 Treatment Diagnosis s/p L hip hemiarthorplasty; difficulty in walking Onset Date 08/05/23 M3 PT-IP Subjective Start: 08/07/23 12:11 Freq: NEEDED Status: Active Protocol: Document 08/07/23 10:05 AB (Rec: 08/07/23 12:40 AB [id number]) Subjective Physical Therapy Visit Type Type Initial Evaluation Visit Start Time 10:05 Visit Stop Time 11:35 Number of GENERAL SERVICE OFFICER Visits 0 Physical Therapy Visit Comments Patient Comments agreeable to do PT Therapy Pain Assessment Pain When Pain Assessed At Rest Pain Present Pain Present Pain Reported Location Left Knee Intensity 7 Pain Behaviors Facial Grimacing,Guarding, Holding Area,Wincing Pain Management Techniques Apply Cold,Distraction, Modification of Treatment, Timing of Activity with Medications M4 PT-IP Mobility and Gait Start: 08/07/23 12:11 Freq: NEEDED Status: Active Protocol: Document 08/07/23 10:05 AB (Rec: 08/07/23 12:40 AB [id number]) PT-Bed Mobility Assessment Supine to Sit Supine to Sit Maximum Assistance,1 Person Assistance,2 Person Assistance ,Head of Bed Elevated Scooting Scooting to Edge of Bed Maximum Assistance PT-Transfer Assessment Sit to and From Stand Sit to and from Stand Maximum Assistance,2 Person Assistance,Use of Upper Extremities Equipment Transfer Assistive Device Front Wheeled Walker Orthotic/Prosthetic Devices or Brace: No Transfers Transfer Destination Chair Transfer Technique Stand Pivot Transfer Ability Level of Assist Maximum Assistance,Total Assistance,2 Person Assistance ,Use of Upper Extremities Comments Mobility Comments pt supine in bed. obtained PLOF and home set up from pt. pt with cognitive issues and initially aware that he is in the hospital but after a few seconds stated that he does not know how he got to his room(pertaining to his house). re-orientated pt to place and situation. post-op folder provided to pt and reviewed contents. educated pt regarding posterior hip precautions but pt unable to recall. BP in supien: 124/45. pt completed supine to sit max A x 1-2 and max cues . pt required 2 attempts to sit up with (+) posterior LOB in sitting requiring max A and max cues. pt requiring frequent rest breaks in between tasks. attempted sit <>stand x 3 reps. pt requiring max X 2 and max cues . Required max A for hip precautions. max A x 2 for standing balance using fWW for support. attempted marching in place but pt unable. pt stated that he has to sit back . max A x 2 for controlled descent to chair. completed sit to stand from EOB max A x 2 and max cues. completed step pivot transfer to chair using fWW max A x 2 to total A x 2 and max cues. positioned pt on the chair. call light and table placed within reach. Gait Assessment Comments Gait Comments unable at this time PT-Balance Assessment Sitting Balance and Reactions Static Sitting Balance Ability Fair Dynamic Sitting Balance Ability Poor Standing Balance and Reactions Static Standing Balance Ability Poor Dynamic Standing Balance Ability Poor Device Used FWW M5 PT-IP Objective Assessments Start: 08/07/23 12:11 Freq: NEEDED Status: Active Protocol: Document 08/07/23 10:05 AB (Rec: 08/07/23 12:40 AB [id number]) Orientation Orientation/Cognition Level of Alertness Confusional State Orientation Name Language Function Ability Hard of Hearing Safety Awareness Decreased Safety Awareness Memory Description 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,Correction Impaired Gross Range of Motion Lower Extremity ROM Assessment Within Functional Limits Strength Lower Extremity Strength Assessment Left Impaired Hip 3-/5 Knee 3-/5 Muscle Tone Muscle Tone WNL Yes M6 PT-IP Treatment Start: 08/07/23 12:11 Freq: NEEDED Status: Active Protocol: Document 08/07/23 10:05 AB (Rec: 08/07/23 12:40 AB [id number]) Physical Therapy Treatment Education Education Provided Precautions,Weight Bearing Status,Post-Op Packet,Safety M7 PT-IP Assessment and Plan Start: 08/07/23 12:11 Freq: NEEDED Status: Active Protocol: Document 08/07/23 10:05 AB (Rec: 08/07/23 12:40 AB [id number]) PT Summary Assessment and Plan Potential Rehabilitation Potential Fair Status of Condition at Evaluation Evolving Summary Impairments Pain,ROM,Strength,Balance, Coordination,Sensation,Tone, Cognition,Bed Mobility, Transfers,Gait,Activity Tolerance Assessment Summary pt is a 72 y/o M s/p fall and sustained a L hip fx. pt underwent L hip hemiarthroplasty and has posterior precautions. pt is WBAT on LLE. pt requiring max A x 2 to total A x 2 and max cues with bed mobility and transfers. pt is non- ambulatory at this time. pt has cognitive/memory issues affecting safety awareness and needing increase assistance. pt will require SNF rehab to improve overall strength and function. Goals Bed Mobility Goal Minimal Assistance Transfer Goal Minimal Assistance,Front Wheeled Walker Gait Goal Minimal Assistance,Front Wheel Walker Gait Distance 50 Other Goals improve bed mobility, transfers, ambulation using FWW ~ 150 ft SBA up/down 1 step using FWW SBA up/down 7 steps R rail + SPC SBA Days to Meet Goals 10 Frequency of Treatment Frequency Of Treatment Twice a Day Treatment Plan Physical Therapy Treatment Plan Bed Mobility Training,Transfer Training,Gait Training, Therapeutic Exercise,Balance Retraining,Post Op Education, Discharge Planning,Hot or Cold Pack,Neuromuscular Re-ed, Coordination Retraining,Manual Therapy Precautions Posterior Hip Precautions No Hip Flexion > 90 degrees,No Hip Internal Rotation,No Hip Adduction Weight Bearing Status Weight Bearing Status Weight Bear as Tolerated Allowed Weight Bearing Amount (enter % LLE WBAT or #) (%) Recommendations To Nursing Amount of Assist Needed Mechanical Lift Discharge Recommendations PT Discharge Recommendations SNF Rehab Transportation Needs at Discharge Wheelchair/Cabulance
[2023-08-07] MEDS: IBUPROFEN 400 MG TABLET PO ×2 (10:26→18:58)
[2023-08-07] MEDS: OXYCODONE IR 5 MG TABLET PO (10:27)
--- NOTE | 2023-08-07 13:30 | PT.IPTN ---
Current Diagnoses Other specified abnormal findings of blood chemistry (08/05/23) Fracture of unspecified part of neck of left femur, initial encounter for closed fracture (08/05/23) Unspecified intracapsular fracture of left femur, initial encounter for closed fracture (08/05/23) Surgery Performed Operation Date: 08/06/23 13:00 Actual Procedures p LEFT HIP CONCHA REPLACEMENT(Left) - Rosanne Ozuna MD Physical Therapy Treatment Note M2 PT-IP Current Condition Start: 08/07/23 12:11 Freq: NEEDED Status: Active Protocol: Document 08/07/23 10:05 AB (Rec: 08/07/23 12:40 AB [id number]) Physical Therapy Current Condition Current Condition Evaluation Date 08/07/23 Treatment Diagnosis s/p L hip hemiarthorplasty; difficulty in walking Onset Date 08/05/23 M3 PT-IP Subjective Start: 08/07/23 12:11 Freq: NEEDED Status: Active Protocol: Document 08/07/23 13:30 AB (Rec: 08/07/23 16:04 AB [id number]) Subjective Physical Therapy Visit Type Type Treatment Note Visit Start Time 13:30 Visit Stop Time 14:05 Number of NOZZLE WORKER Visits 0 Physical Therapy Visit Comments Patient Comments with confusion and initially does not want to move M4 PT-IP Mobility and Gait Start: 08/07/23 12:11 Freq: NEEDED Status: Active Protocol: Document 08/07/23 13:30 AB (Rec: 08/07/23 16:04 AB [id number]) PT-Bed Mobility Assessment Sit to Supine Sit to Supine Maximum Assistance,2 Person Assistance,Head of Bed Elevated PT-Transfer Assessment Sit to and From Stand Sit to and from Stand Maximum Assistance,1 Person Assistance,2 Person Assistance ,Use of Upper Extremities Equipment Transfer Assistive Device Gait Belt,Front Wheeled Walker Orthotic/Prosthetic Devices or Brace: No Transfers Transfer Destination Bed Transfer Technique Stand Step Pivot Transfer Ability Level of Assist Maximum Assistance,2 Person Assistance,Use of Upper Extremities Comments Mobility Comments pt sitting on the chair. pt with confusion and initially does not want to move. educated pt regarding importance of mobility. pt gets easily distracted and can only follow one step cues for safety at this time. reviewed posterior hip precautions with pt and pt unable to recall. completed sit to stand max A x 2 and max cues for hip precautions/ safety. pt ambulated ~ 6 ft using FWW max A x 2 and max cues. required assist for L knee stability and wegith shifting to be able to take steps. chair follow also needed. pt sat back on the chair requiring max Ax 2 for controlled descent. pt requested to go back to bed. completed sit to stand from bed max A x 1-2 and max cues and step transfer to bed using FWW max a x 2 and max cues. pt completed sit to supine max A x 2 and max cues. positioned pt in bed. call light and table placed within reach. left pt with OT. Gait Assessment Gait Gait Assistance Required: Maximum Assistance,2 Person Assist Distance (Feet) 6 Able to Maintain Weight Bearing Status Yes During Gait Assistive Devices Assistive Device Gait Belt,Front Wheeled Walker Orthotic/Prosthetic Devices or Brace: No Gait Deviations General Gait Pattern Decreased Stride Length, Decreased Feet Clearance,Step- to Gait Factors Limiting Gait Function Factors Limiting Gait Function Decreased Activity Tolerance, Decreased Strength,Difficulty Following Directions, Incoordination,Limited Range of Motion,Pain,Poor Balance, Poor Safety Awareness M5 PT-IP Objective Assessments Start: 08/07/23 12:11 Freq: NEEDED Status: Active Protocol: Document 08/07/23 10:05 AB (Rec: 08/07/23 12:40 AB [id number]) Orientation Orientation/Cognition Level of Alertness Confusional State Orientation Name Language Function Ability Hard of Hearing Safety Awareness Decreased Safety Awareness Memory Description 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,Customer Experience Specialist Impaired Gross Range of Motion Lower Extremity ROM Assessment Within Functional Limits Strength Lower Extremity Strength Assessment Left Impaired Hip 3-/5 Knee 3-/5 Muscle Tone Muscle Tone WNL Yes M6 PT-IP Treatment Start: 08/07/23 12:11 Freq: NEEDED Status: Active Protocol: Document 08/07/23 13:30 AB (Rec: 08/07/23 16:04 AB [id number]) Physical Therapy Treatment Education Education Provided Precautions,Safety M7 PT-IP Assessment and Plan Start: 08/07/23 12:11 Freq: NEEDED Status: Active Protocol: Document 08/07/23 13:30 AB (Rec: 08/07/23 16:04 AB [id number]) PT Summary Assessment and Plan Potential Rehabilitation Potential Fair Summary Impairments Pain,ROM,Strength,Balance, Coordination,Sensation,Tone, Cognition,Bed Mobility, Transfers,Gait,Activity Tolerance Progress Towards Goals Slow Progress - Other Assessment Summary pt requiring max A x 2 with mobility and was able to ambulate using FWW this afternoon ~ 6 ft and requiring max A x 2 and max cues. pt with confusion and unable to recall his precautions. pt needing one step commands and max cues with all tasks. pt will require SNF rehab to improve overall strength and mobility. Goals Bed Mobility Goal Minimal Assistance Transfer Goal Minimal Assistance,Front Wheeled Walker Gait Goal Minimal Assistance,Front Wheel Walker Gait Distance 50 Other Goals improve bed mobility, transfers, ambulation using FWW ~ 150 ft SBA up/down 1 step using FWW SBA up/down 7 steps R rail + SPC SBA Days to Meet Goals 10 Frequency of Treatment Frequency Of Treatment Twice a Day Treatment Plan Physical Therapy Treatment Plan Bed Mobility Training,Transfer Training,Gait Training, Therapeutic Exercise,Balance Retraining,Post Op Education, Discharge Planning,Hot or Cold Pack,Neuromuscular Re-ed, Coordination Retraining,Manual Therapy Precautions Posterior Hip Precautions No Hip Flexion > 90 degrees,No Hip Internal Rotation,No Hip Adduction Weight Bearing Status Weight Bearing Status Weight Bear as Tolerated Allowed Weight Bearing Amount (enter % LLE WBAT or #) (%) Recommendations To Nursing Amount of Assist Needed Mechanical Lift Discharge Recommendations PT Discharge Recommendations SNF Rehab Transportation Needs at Discharge Wheelchair/Cabulance
--- NOTE | 2023-08-07 14:06 | OT.IP.EVAL ---
Current Diagnoses Other specified abnormal findings of blood chemistry (08/05/23) Fracture of unspecified part of neck of left femur, initial encounter for closed fracture (08/05/23) Unspecified intracapsular fracture of left femur, initial encounter for closed fracture (08/05/23) Surgery Performed Operation Date: 08/06/23 13:00 Actual Procedures p LEFT HIP CONCHA REPLACEMENT(Left) - Rosanne Ozuna MD Occupational Therapy Inpatient Evaluation/Re-Eval M1 PT/OT-IP Prior Functional Status Start: 08/07/23 12:11 Freq: NEEDED Status: Active Protocol: Document 08/07/23 14:18 [facility] (Rec: 08/07/23 14:32 [facility] [id number]) Medical Review Prior Functional Status Medical History Reviewed Yes Communication able to make needs known; has memory issues Mobility and Gait pt stated that he was modified independent with all mobilities and ambulation using a SPC. pt stated that he started using a SPC earlier this year due to his falls. stated that he had ~ 3 falls for the year. pt is a poor historian and seems to have cognitive/memory issues and does not give definitive answers to questions Activities of Daily Living and IADL's Pt states able to do all needs on his own at home. Social History Household Members none Living Arrangements House Number of Floors (Floors) Two Floors Number of Stairs To Enter/Railing? pt lives on a split level house: 1 step to enter from the garage and 7 steps R rail ascending to main level of the house Home Environment Standard Height Toilet,Tub/ Shower Home Equipment Straight Cane Additional Social History Comment pt stated that his daughter will be staying with him for ~ 2 days to assist him. M2 OT-IP Current Condition Start: 08/07/23 14:18 Freq: Status: Active Protocol: Document 08/07/23 14:18 [facility] (Rec: 08/07/23 14:32 [facility] [id number]) Occupational Therapy Current Condition Current Condition Evaluation Date 08/07/23 Treatment Diagnosis GLF s/P L ALESSANDRA posterior precautions. Diagnosis Onset Date 08/06/23 Post Operative Precautions Posterior Hip Precautions No Hip Flexion > 90 degrees,No Hip Internal Rotation,No Hip Adduction M3 OT- IP Subjective and Pain Start: 08/07/23 14:18 Freq: Status: Active Protocol: Document 08/07/23 14:18 [facility] (Rec: 08/07/23 14:32 [facility] [id number]) OT- Subjective Occupational Therapy Visit Type Type Initial Evaluation Visit Start Time 13:30 Visit Stop Time 14:06 Occupational Therapy Visit Comments Patient Comments Pt needing lots of encouragement and step by step commands to follow. OT Pain Assessment Pain When Pain Assessed During Mobility Pain Present Pain Present Pain Reported M4 OT- IP ADL's Start: 08/07/23 14:18 Freq: Status: Active Protocol: Document 08/07/23 14:18 [facility] (Rec: 08/07/23 14:32 [facility] [id number]) OT [id number] Comments OT Self-Feeding Comments Not at meal time. OT ADL-Grooming Comments OT Grooming Comments Not performed. OT ADL-Oral Care Comments Oral Care Comments Not performed. OT ADL-Dressing General Eval Lower Body Dressing Ability Maximum Assistance Areas Needing Assistance Socks Comments OT Dressing Comments Pt confused at this time and not aware of his hip precautions. OT ADL-Toileting Comments OT Toileting Comments Not performed. OT ADL-Bathing Comments OT Bathing Comments Not performed, sponge bath more appropriate at this time. M5 OT- IP IADL's Start: 08/07/23 14:18 Freq: Status: Active Protocol: Document 08/07/23 14:18 [facility] (Rec: 08/07/23 14:32 [facility] [id number]) OT-Instrumental Activities of Daily Living Deficits IADL Deficits Identified Deficits Home Safety Awareness Awareness of Need for Assistance at Home Decreased Awareness Ability to Problem Solve Emergency Unable to Problem Solve Situations Home Safety Comments Pt not aware at the hospital and states thinks he is at home. Medication Management Medication Management Comments At this time pt will require assist. Money Management Money Management Comments At this time pt will require assist. Meal Preparation Meal Preparation Comments At this time pt will require assist. Senior Environmental Technician Senior Environmental Technician Comments At this time pt will require assist. M6 OT- IP Functional Cognition Start: 08/07/23 14:18 Freq: Status: Active Protocol: Document 08/07/23 14:18 [facility] (Rec: 08/07/23 14:32 [facility] [id number]) Cognitive Factors Limiting Selfcare Function Cognitive Ability Level of Alertness Confusional State Patient Orientation Name Attention Span Ability Unable to Focus,Unable to Sustain Attention Ability to Follow Commands Able to Follow One Step Commands with Increased Time, Able to Follow One Step Commands with Repetition Memory Description 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,Half-Way Impaired,Working Impaired Safety Awareness Decreased Recall of Precautions,Decreased Ability to Apply Precautions, Underestimates Need for Assistance Cognitive Comments Cognitive Assessment Comments At this time pt mainly just orientated to his name. Pt at times states he is at home and needing reminders that he is in the hospital. Pt also not aware that he broke his hip. Pt likes to jokes around and is also impulsive. OT- Vision and Hearing OT- Hearing Assessment OT- Hearing Assessment WFL OT- Vision Assessment Visual Acuity Glasses For Reading Vision Assessment Comments Pt having difficulty to find the urinal located on the right. To further assess his vision as pt clears up mentally. M7 OT- IP Mobility and Balance Start: 08/07/23 14:18 Freq: Status: Active Protocol: Document 08/07/23 14:18 [facility] (Rec: 08/07/23 14:32 [facility] [id number]) OT- Bed Mobility Assessment Sit to Supine Sit to Supine Assist Maximum Assistance,2 Person Assistance OT-Transfer Assessment Sit to and From Stand Sit to and from Stand Maximum Assistance,2 Person Assistance Transfers Transfer Ability Maximum Assistance,2 Person Assistance Technique Transfer Destination Bed,Chair Transfer Technique Stand Step Pivot Devices Transfer Assistive Devices Gait Belt,Front Wheeled Walker Comments Mobility Comments MAX XA 2 to stand and asisst to help slide his LLE forwards when coming to stand and when sitting down. Hand over hand assist to assist with his hands to reach to the FWW and back to the recliner armrests . MAX vc for safety and to follow his hip precautions. OT- Balance Assessment Sitting Balance and Reactions Static Sitting Balance Ability Good Dynamic Sitting Balance Ability Fair Standing Balance and Reactions Static Standing Balance Ability Poor Dynamic Standing Balance Ability Poor M8 OT- IP Objective Assessments Start: 08/07/23 14:18 Freq: Status: Active Protocol: Document 08/07/23 14:18 [facility] (Rec: 08/07/23 14:32 [facility] [id number]) OT Strength Comments Strength Comments TO further assess tomorrow, at least 3-/5 to be able to assist for mobility needs. M9 OT- IP Assessment and Plan Start: 08/07/23 14:18 Freq: Status: Active Protocol: Document 08/07/23 14:18 [facility] (Rec: 08/07/23 14:32 [facility] [id number]) OT Summary Assessment and Plan Potential Rehabilitation Potential Fair Analytic Complexity at Evaluation Moderate Summary OT Impairments Pain,Strength,Balance, Functional Cognition, Functional Mobility,Self- Feeding,Grooming,Dressing, Toileting,Bathing,Toilet Transfers,Shower Transfers, Activity Tolerance Progress Towards Goals Slow Progress due to Pain,Slow Progress due to Medical Issues,Slow Progress due to Activity Tolerance,Slow Progress due to Cognition Assessment Summary Pt MOD complexity and main barriers are steps, pain, groggy and not thinking well at this time, history of falls, and pt now needing extensive two person assist for ADl and mobility needs. Pt will benefit from skilled rehab when medically stable. Goals Self-Feeding Goal Standby Assistance Grooming Goal Standby Assistance Dressing Goal Minimal Assistance Toileting Goal Minimal Assistance Bathing Goal Moderate Assistance Toilet Transfer Goal Minimal Assistance Shower Transfer Goal Moderate Assistance Days to Meet Goals 20 Frequency of Treatment Frequency Of Treatment Once a Day Treatment Plan OT Treatment Plan ADL Training,Functional Cognition Training,Functional Mobility,Patient/Family Education,Discharge Planning Discharge Recommendations OT Discharge Recommendations SNF Rehab Transportation Needs at Discharge Wheelchair/Cabulance
[2023-08-07 15:48] VITALS: BP 120/57; PULSE 79; RESP 18; TEMP 36.8; O2SAT 97
[2023-08-07] MEDS: LORazepam 2 MG/ML INJ 0.5 MG IV (16:04)
[2023-08-07 16:14] LABS: Add Manual Diff / Slide Review NO; Basophils Absolute Auto 100 /uL (0-100); Basophils Percent Auto 0.7 % (0-2); Eosinophils Absolute Auto 100 /uL (0-450); Eosinophils Percent Auto 0.9 % (2-4); Hematocrit 34.1 % (41-53); Hemoglobin 11.3 g/dL (13.5-17.5); Lymphocytes Absolute Auto 2000 /uL (1100-4500); Lymphocytes Percent Auto 14.7 % (25-40); Mean Corpuscular HGB Conc 33.1 % (30-36); Mean Corpuscular Hemoglobin 30.5 PG (26-34); Mean Corpuscular Volume 92.2 fL (80-100); Monocytes Absolute Auto 1700 /uL (0-900); Monocytes Percent Auto 12.1 % (3-14); Neutrophils Absolute Auto 9700 /uL (1500-7000); Neutrophils Percent Auto 71.6 % (50-75); Platelet Count 135 X10^3/uL (150-400); Red Cell Distribution Width 13.9 % (11.6-14.8); White Blood Cell Count 13.6 X10^3/uL (4.5-11.0)
[2023-08-07 16:30] VITALS: RESP 16
[2023-08-07] MEDS: HALOPERIDOL 5 MG/ML VIAL IV (16:31)
--- NOTE | 2023-08-07 16:33 | PC.NURSE ---
pt has been agitated and keeps stating that he wants to go smoke. educated pt numerous times that is unable to smoke in hospital and unable to go outside r/t hospital policy. nicotine patch offered and refused. pt is confused, thinks hospital staff are conspriring againest him. was only able to take a few steps with PT/OT today before needing to sit down. pt attempting to get out of recliner multiple times and once back to bed after lunch attempted OOB repeatedly. pt has been educated about importance of post op precautions. pt's daughter at bedside approx 1600 and pt continued to get agitated. Primary RN called and order obtained/administered for IV ativan (ref EMAR). post ativan pt grabbed all of his belonging off of bedside table and states I'm getting out of here. again attempted to reorient pt to safety precautions without success. Pt continues to throw legs over bedside stating he's leaving. Haldol administered for increased agitation as pt is a fall risk and not maintaining post op hip precautions.
--- NOTE | 2023-08-07 16:35 | CM.DPNOTE ---
DCP Note FOOD DEHYDRATOR OPERATOR reviewed EMR. Pt is POD 1 from left hip surgery with Dr. Ozuna. Per PT/OT/RN, pt was confused throughout day. Eager for home. Nursing was wondering if pain meds led to confusion. Per RN, dtr Arabella stopped by briefly, pt was almost code ron/left AMA with dtr? PT/OT rec SNF. Per PT eval, pt struggled to follow cues at this time. Pt either sleeping heavily or working with therapies when this FOOD DEHYDRATOR OPERATOR attempted to speak with him. FOOD DEHYDRATOR OPERATOR unable to meet with pt or connect with dtr today. RN hopeful for pt's confusion to be decreased tomorrow. P: DCP pending. SNF vs home pending dtr/pt preference. CM team will follow closely tomorrow. EDD Crane
[2023-08-07 17:32] LABS: Folate 5.5 ng/mL (2.76-20.0); Vitamin B12 368 pg/mL (239-931)
--- NOTE | 2023-08-07 17:34 | DI.RAD.S_ITS ---
PROCEDURE: XR CHEST 1V INDICATIONS: leukocytosis; delirium TECHNIQUE: One view of the chest was acquired. COMPARISON: [facility], CR, XR CHEST 1V, 08/05/2023, 17:45. FINDINGS: Surgical changes and devices: None. Lungs and pleura: Lungs are clear. No pleural effusions or pneumothorax. Mediastinum: Mediastinal contours appear normal. Heart size is normal. Bones and chest wall: No suspicious bony lesions. Overlying soft tissues appear unremarkable. IMPRESSION: No acute cardiopulmonary pathology. Dictated by: Chandan Mary M.D. on 08/07/2023 at 17:59 Approved by: Chandan Mary M.D. on 08/07/2023 at 17:59
--- NOTE | 2023-08-07 17:45 | P.PN_ITS ---
Subjective Subjective Date Patient Seen: 08/07/23 Time Patient Seen: 17:45 Interval history: 72-year-old male who is followed by Dr. Salgado presented to the ER after a ground level fall where he fell on his buttocks and sustained a left hip fracture but did not have any head trauma and underwent open reduction and internal fixation last night on 08/06/2023. Patient has a history of tobacco abuse and hypertension and hyperlipidemia. Patient had a sudden change in how he was doing today where he became confused this afternoon and wanting to leave and find his car. Patient has no history of significant alcohol use. There is no prior documentation of any major neurocognitive disorders or psychiatric disorders. Patient's vital signs have been stable. He is eating well without any difficulty his labs have been normal. He is working with physical therapy but is not safe for discharge. Patient lives alone here in and [place]. Reviewed past medical history, medications, allergies, past surgical history and health related behavior 12 point review of systems is otherwise unremarkable Patient denies any GI problems. Patient denies any shortness a breath or chest pain or palpitations Exam Vital Signs (past 8 hours): - 08/07/23 16:30 Respiratory Rate 16 Oxygen Delivery Method Room Air Oxygen Flow Rate 0 Narrative Exam Narrative: Patient is alert and oriented to person but not place or time. Patient has word-finding difficulties and is confused. He does remember that Dr. Osullivan is his doctor. He repeats himself several times during my time with him. HEENT is unremarkable Neck: Supple without masses Chest: Prolonged expiratory phase with no wheezes rhonchi or crackles Cor: Regular rate and rhythm without murmur Abdomen: Positive bowel sounds, soft, nontender, nondistended, no hepatosplenomegaly Extremities: No edema pulses intact Incision clean and dry Neurologic exam: Cranial nerves 2-12 are grossly intact. Strength is grossly symmetric in all large muscle groups bilateral upper and lower extremities. Sensations intact to light touch. No focal abnormalities other than confusion and word-finding difficulty as well as some confabulating Skin no rashes Objective Labs 08/07/23 16:05 08/07/23 05:24 Labs: Laboratory Results - last 24 hr 08/07/23 08/07/23 05:24 16:05 WBC 13.6 H D RBC 3.70 L Hgb 10.6 L 11.3 L Hct 32.0 L 34.1 L MCV 92.2 MCH 30.5 MCHC 33.1 RDW 13.9 Plt Count 135 L Neut % (Auto) 71.6 Lymph % (Auto) 14.7 L [place] % (Auto) 12.1 Eos % (Auto) 0.9 L Baso % (Auto) 0.7 Neut # (Auto) 9700 H Lymph # (Auto) 2000 [place] # (Auto) 1700 H Eos # (Auto) 100 Baso # (Auto) 100 Sodium 134 L Potassium 4.3 Chloride 109 H Carbon Dioxide 23 BUN 20 Creatinine 0.77 Estimated GFR > 60 BUN/Creatinine Ratio 26.0 H Glucose 100 Calcium 8.4 Vitamin B12 368 Folate 5.5 PFSH Social History household members: none Smoking Status: Current every day smoker Assessment & Plan Assessment & Plan narrative: 72-year-old male sustained a ground level fall onto his buttocks and sustained a left hip fracture, postop day 1. From open reduction internal fixation Assessment 1. Postoperative hip fracture Plan: Continue per physical therapy. Patient is not stable to go home at this time. Pain is well-controlled. Continue per ortho Assessment 2. Acute delirium of unclear etiology. Differential includes infectious etiology his white blood cell count was elevated. Chest x-ray and urine culture are pending. Possible sun downers though no clear diagnosis of dementia. No history of alcohol use. CT scan on admit showed mild possible hydrocephalus. There was no evidence of any bleed and patient did not hit his head when he fell. We will treat empirically with ceftriaxone 1 g IV Q 24 hours. Will await results of urine and chest x-ray. No focal neurologic abnormalities. If condition worsens or persists will reimage head. Will treat symptomatically with lorazepam as needed, Haldol as needed and Seroquel at night as needed Assessment 3. Hypertension appears well-controlled Plan: Continue outpatient metoprolol Assessment 4. Hyperlipidemia Plan: Continue outpatient atorvastatin Assessment 5. Leukocytosis could be early infection versus postoperative inflammatory. Plan: Urine culture pending, chest x-ray done. Will treat empirically with antibiotics until we receive results or condition improves. 56 minutes was spent with patient today in discussing with nursing, meeting with patient, discussing with pharmacy, reviewing chart, formulating a plan and documentation.
[2023-08-07 18:29] LABS: Appearance Urine UA CLEAR; Bilirubin Urine UA NEGATIVE (NEGATIVE); Color Urine UA YELLOW; Glucose Urine UA NEGATIVE (Negative); Ketones Urine UA NEGATIVE (NEGATIVE); Leukocyte Esterase Urine UA NEGATIVE (NEGATIVE); Nitrite Urine UA NEGATIVE (Negative); Occult Blood Urine UA TRACE-INTACT (Negative); Protein Urine UA NEGATIVE (Negative); Specific Gravity Urine UA <=1.005 (1.000-1.035)
[2023-08-07 18:38] LABS: Bacteria Urine None Seen; Culture Indicated Urine Cult Not Indicated; RBC Urine 0-1/HPF (0-5/HPF); Squamous Epithelial Cell Urine 0-1 /HPF (0-5/HPF); Urine Volume 10mL (spun); WBC Urine 0-1/HPF (0-5/HPF)
[2023-08-07] MEDS: cefTRIAXone 1,000 MG in SODIUM CHLORIDE 0.9% 100 ML 200 MG IV (18:58)
[2023-08-07] MEDS: QUETIAPINE 25 MG TABLET 12.5 MG PO (18:59)
[2023-08-07] MEDS: NICOTINE 21 MG PATCH TOP (19:00)
--- NOTE | 2023-08-07 20:04 | PC.NURSE ---
pt has repeatedly attempted to get out of bed. Pt states that he needs to go home now despite limited range of motion in his left lower extremity. pt states that the hospital can not hold him hostage.
[2023-08-07] MEDS: DOCUSATE 100 MG CAPSULE PO (20:14)
[2023-08-07] MEDS: HALOPERIDOL 5 MG/ML VIAL 2 MG IV (20:21)
[2023-08-08] VITALS: BP 122/57; PULSE 67; RESP 18; TEMP 36.2; O2SAT 94
[2023-08-08] MEDS: HALOPERIDOL 5 MG/ML VIAL 2 MG IV (00:48)
[2023-08-08 03:00] VITALS: BP 142/70; RESP 16; TEMP 36.2; O2SAT 99
[2023-08-08 05:48] LABS: Add Manual Diff / Slide Review NO; Basophils Absolute Auto 100 /uL (0-100); Basophils Percent Auto 0.8 % (0-2); Eosinophils Absolute Auto 300 /uL (0-450); Eosinophils Percent Auto 2.9 % (2-4); Hematocrit 32.1 % (41-53); Hemoglobin 10.8 g/dL (13.5-17.5); Lymphocytes Absolute Auto 1500 /uL (1100-4500); Lymphocytes Percent Auto 15.9 % (25-40); Mean Corpuscular HGB Conc 33.6 % (30-36); Mean Corpuscular Volume 92.3 fL (80-100); Monocytes Absolute Auto 1300 /uL (0-900); Neutrophils Absolute Auto 6300 /uL (1500-7000); Neutrophils Percent Auto 66.4 % (50-75); Platelet Count 113 X10^3/uL (150-400); Red Blood Cell Count 3.48 X10^6/uL (4.5-5.9); Red Cell Distribution Width 13.9 % (11.6-14.8); White Blood Cell Count 9.4 X10^3/uL (4.5-11.0)
[2023-08-08 06:09] LABS: Alanine Aminotransferase 20 IU/L (<50); Albumin Globulin Ratio 1.1 (1.0-2.8); Alkaline Phosphatase 57 U/L (38-126); Aspartate Aminotransferase 47 IU/L (17-59); BUN Creatinine Ratio 26.9 (6-22); Bilirubin Total 0.6 mg/dL (0.2-1.3); Blood Urea Nitrogen 21 mg/dL (9-20); Calcium 8.3 mg/dL (8.4-10.2); Carbon Dioxide 24 mmol/L (22-32); Chloride 111 mmol/L (98-107); Estimated Glomerular Filt Rate > 60 mL/min (>60); Globulin 2.8 g/dL (1.7-4.1); Glucose 97 mg/dL (80-110); HEMOLYSIS < 15 (0-50); Sodium 138 mmol/L (137-145); Total Protein 5.8 g/dL (6.3-8.2)
--- NOTE | 2023-08-08 07:45 | P.PN_ITS ---
Subjective Subjective Date Patient Seen: 08/08/23 Time Patient Seen: 07:45 Interval history: Was easily awakened. Says he has minimal pain at this time. Denies any numbness or tingling. He does not remember if he was able to get up and walk yesterday with physical therapy. He is still having to use bedside urinal. Pain is controlled with oral medications. Exam Vital Signs (past 8 hours): - 08/08/23 00:00 08/08/23 03:00 Temperature 97.2 F L 97.1 F L Pulse Rate 67 Respiratory Rate 18 16 Blood Pressure 122/57 L 142/70 H Pulse Oximetry 94 99 Oxygen Delivery Method Room Air Oxygen Flow Rate 0 Narrative Exam Narrative: Patient is alert and oriented to person time and city. He thought he was in living room compared to hospital upon first discussion, but reoriented to realizing he is in a hospital bed. Dressing is clean and well-maintained. 5/5 strength in hip flexors, quadriceps, hamstrings, DF, PF, EHL bilaterally. Sensation to light touch intact throughout BLE. Calves soft, compressible, nontender. SCD's were found not applied to LE Resp Effort & Inspection: normal respiratory effort and able to speak in complete sentences Objective Labs 08/08/23 05:12 08/08/23 05:12 Labs: Laboratory Results - last 24 hr 08/07/23 08/07/23 08/07/23 05:24 16:05 17:40 WBC 13.6 H D RBC 3.70 L Hgb 11.3 L Hct 34.1 L MCV 92.2 MCH 30.5 MCHC 33.1 RDW 13.9 Plt Count 135 L Neut % (Auto) 71.6 Lymph % (Auto) 14.7 L [place] % (Auto) 12.1 Eos % (Auto) 0.9 L Baso % (Auto) 0.7 Neut # (Auto) 9700 H Lymph # (Auto) 2000 [place] # (Auto) 1700 H Eos # (Auto) 100 Baso # (Auto) 100 Sodium 134 L Potassium 4.3 Chloride 109 H Carbon Dioxide 23 BUN 20 Creatinine 0.77 Estimated GFR > 60 BUN/Creatinine Ratio 26.0 H Glucose 100 Calcium 8.4 Total Bilirubin AST ALT Alkaline Phosphatase Total Protein Albumin Globulin Albumin/Globulin Ratio Vitamin B12 368 Folate 5.5 Urine Color Yellow Urine Appearance Clear Urine pH 6.0 Ur Specific [place] <=1.005 Urine Protein Negative Urine Glucose (UA) Negative Urine Ketones Negative Urine Occult Blood Trace-intact Urine Nitrate Negative Urine Bilirubin Negative Urine Urobilinogen 1.0 Ur Leukocyte Esterase Negative Urine RBC 0-1/hpf Urine WBC 0-1/hpf Ur Squamous Epith Cells 0-1 /hpf Urine Bacteria None seen Ur Culture Indicated? Cult not indicated Vol Urine Centrifuged 10ml (spun) 08/08/23 05:12 WBC 9.4 RBC 3.48 L Hgb 10.8 L Hct 32.1 L MCV 92.3 MCH 31.0 MCHC 33.6 RDW 13.9 Plt Count 113 L Neut % (Auto) 66.4 Lymph % (Auto) 15.9 L [place] % (Auto) 14.0 Eos % (Auto) 2.9 Baso % (Auto) 0.8 Neut # (Auto) 6300 Lymph # (Auto) 1500 [place] # (Auto) 1300 H Eos # (Auto) 300 Baso # (Auto) 100 Sodium 138 Potassium 4.0 Chloride 111 H Carbon Dioxide 24 BUN 21 H Creatinine 0.78 Estimated GFR > 60 BUN/Creatinine Ratio 26.9 H Glucose 97 Calcium 8.3 L Total Bilirubin 0.6 AST 47 ALT 20 Alkaline Phosphatase 57 Total Protein 5.8 L Albumin 3.0 L Globulin 2.8 Albumin/Globulin Ratio 1.1 Vitamin B12 Folate Urine Color Urine Appearance Urine pH Ur Specific [place] Urine Protein Urine Glucose (UA) Urine Ketones Urine Occult Blood Urine Nitrate Urine Bilirubin Urine Urobilinogen Ur Leukocyte Esterase Urine RBC Urine WBC Ur Squamous Epith Cells Urine Bacteria Ur Culture Indicated? Vol Urine Centrifuged [facility] Social History household members: none Smoking Status: Current every day smoker Assessment & Plan Post-op Postoperative Procedures: Procedures Operation Date: 08/06/23 13:00 Actual Procedure Side Surgeon p LEFT HIP CONCHA REPLACEMENT Left Rosanne Ozuna MD Postoperative day: 2 Postoperative status: doing well Postoperative status narrative: Stable status post left hip unipolar Postoperative plan narrative: Standard total hip replacement protocol with weight-bearing as tolerated and posterior hip precautions Aspirin 81 mg b.i.d. for DVT prophylaxis Reapplied SCDs. They need to be on while in bed. Multimodal pain management Mobilize with physical therapy Discharge when medically stable and safe for home environment Time Spent With Patient Time with patient: 15-24 minutes Quality VTE Deep Vein Thrombosis/Pulmonary Embolism Present on Admission: No
[2023-08-08] MEDS: ASPIRIN EC 81 MG TABLET PO ×2 (08:18→20:37)
[2023-08-08] MEDS: ACETAMINOPHEN 325 MG TABLET 650 MG PO (08:18)
[2023-08-08] MEDS: METOPROLOL IR 50 MG TABLET PO ×2 (08:19→20:37)
[2023-08-08] MEDS: DOCUSATE 100 MG CAPSULE PO ×2 (08:19→20:37)
[2023-08-08] MEDS: IBUPROFEN 400 MG TABLET PO (08:20)
[2023-08-08 09:00] VITALS: BP 147/74; PULSE 78; RESP 16; TEMP 36.3; O2SAT 96
[2023-08-08] MEDS: HYDROMORPHONE 0.5 MG INJ 0.25 MG IV (11:08)
--- NOTE | 2023-08-08 11:25 | PT.IPTN ---
Current Diagnoses Other specified abnormal findings of blood chemistry (08/05/23) Fracture of unspecified part of neck of left femur, initial encounter for closed fracture (08/05/23) Unspecified intracapsular fracture of left femur, initial encounter for closed fracture (08/05/23) Surgery Performed Operation Date: 08/06/23 13:00 Actual Procedures p LEFT HIP CONCHA REPLACEMENT(Left) - Rosanne Ozuna MD Physical Therapy Treatment Note M2 PT-IP Current Condition Start: 08/07/23 12:11 Freq: NEEDED Status: Active Protocol: Document 08/07/23 10:05 AB (Rec: 08/07/23 12:40 AB [id number]) Physical Therapy Current Condition Current Condition Evaluation Date 08/07/23 Treatment Diagnosis s/p L hip hemiarthorplasty; difficulty in walking Onset Date 08/05/23 M3 PT-IP Subjective Start: 08/07/23 12:11 Freq: NEEDED Status: Active Protocol: Document 08/08/23 12:08 TS (Rec: 08/08/23 12:22 TS [id number]) Subjective Physical Therapy Visit Type Type Treatment Note Visit Start Time 11:25 Visit Stop Time 12:05 Physical Therapy Visit Comments Patient Comments Pt is more alert this morning and answering questions appropriately. Pt knows he is the hospital and why. Pt is agreeable to PT. Therapy Pain Assessment Pain When Pain Assessed During Mobility Pain Present Pain Present Pain Reported M4 PT-IP Mobility and Gait Start: 08/07/23 12:11 Freq: NEEDED Status: Active Protocol: Document 08/08/23 12:08 TS (Rec: 08/08/23 12:22 TS [id number]) PT-Bed Mobility Assessment Supine to Sit Supine to Sit Maximum Assistance,2 Person Assistance,Head of Bed Elevated Scooting Scooting to Edge of Bed Contact Guard Assistance PT-Transfer Assessment Sit to and From Stand Sit to and from Stand Maximum Assistance,2 Person Assistance Equipment Transfer Assistive Device Gait Belt,Front Wheeled Walker Orthotic/Prosthetic Devices or Brace: No Transfers Transfer Destination Chair Transfer Technique Stand Step Pivot Transfer Ability Level of Assist Maximum Assistance,2 Person Assistance,Use of Upper Extremities Comments Mobility Comments Pt was educated on posterior hip precautions, recalled 2/3 hip precautions at end of session(no IR of L hip). Supine to sit MaxA x2 wit max cues for sequencing and use of handrails. Pt sat EOB, has a posterior and L sided lean, requires cues to maintain midline and ModA at times for balance. Pt reports L sided lean has been occuring for 6 to 12 months. STS from bed with FWW MaxA x2, pt required cues for pushing from bed and LLE out in front. Stand step pivot to chair MaxA x2 with FWW. LLE lisha at times and pt requires cues for quad act, has some diffiuclty completing task. Pt progressively got fatigue and could not complete transfer all the way to chair, he required MaxA for descending into chair. Pt was left in chair, all needs met. Gait Assessment Gait Gait Assistance Required: Maximum Assistance,2 Person Assist Distance (Feet) 2 Able to Maintain Weight Bearing Status Yes During Gait Assistive Devices Assistive Device Gait Belt,Front Wheeled Walker Orthotic/Prosthetic Devices or Brace: No Gait Deviations General Gait Pattern Decreased Stride Length, Decreased Feet Clearance,Step- to Gait Factors Limiting Gait Function Factors Limiting Gait Function Decreased Activity Tolerance, Decreased Strength,Difficulty Following Directions, Incoordination,Limited Range of Motion,Pain,Poor Balance, Poor Safety Awareness PT-Balance Assessment Sitting Balance and Reactions Static Sitting Balance Ability Fair Dynamic Sitting Balance Ability Poor Standing Balance and Reactions Static Standing Balance Ability Poor Dynamic Standing Balance Ability Poor Device Used FWW M5 PT-IP Objective Assessments Start: 08/07/23 12:11 Freq: NEEDED Status: Active Protocol: Document 08/07/23 10:05 AB (Rec: 08/07/23 12:40 AB [id number]) Orientation Orientation/Cognition Level of Alertness Confusional State Orientation Name Language Function Ability Hard of Hearing Safety Awareness Decreased Safety Awareness Memory Description 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,Senior Care Impaired Gross Range of Motion Lower Extremity ROM Assessment Within Functional Limits Strength Lower Extremity Strength Assessment Left Impaired Hip 3-/5 Knee 3-/5 Muscle Tone Muscle Tone WNL Yes M6 PT-IP Treatment Start: 08/07/23 12:11 Freq: NEEDED Status: Active Protocol: Document 08/08/23 12:08 TS (Rec: 08/08/23 12:22 TS [id number]) Physical Therapy Treatment Exercises Exercises Quad Sets,Heel Slides Education Education Provided Precautions,Safety M7 PT-IP Assessment and Plan Start: 08/07/23 12:11 Freq: NEEDED Status: Active Protocol: Document 08/08/23 12:08 TS (Rec: 08/08/23 12:22 TS [id number]) PT Summary Assessment and Plan Potential Rehabilitation Potential Fair Summary Impairments Pain,ROM,Strength,Balance, Coordination,Sensation,Tone, Cognition,Bed Mobility, Transfers,Gait,Activity Tolerance Progress Towards Goals Slow Progress - Other Assessment Summary Sergei is making slow progress with his mobility. He requires MaxA x2 for bed mobility with max cues. He performed STS from bed with FWW MaxA x2. Pt' s LLE tends to buckle with STS and transfer to chair, he could not fully complete transfer to chair with FWW. PT continues to recommend SNF at this time. Goals Bed Mobility Goal Minimal Assistance Transfer Goal Minimal Assistance,Front Wheeled Walker Gait Goal Minimal Assistance,Front Wheel Walker Gait Distance 50 Other Goals improve bed mobility, transfers, ambulation using FWW ~ 150 ft SBA up/down 1 step using FWW SBA up/down 7 steps R rail + SPC SBA Days to Meet Goals 10 Frequency of Treatment Frequency Of Treatment Twice a Day Treatment Plan Physical Therapy Treatment Plan Bed Mobility Training,Transfer Training,Gait Training, Therapeutic Exercise,Balance Retraining,Post Op Education, Discharge Planning,Hot or Cold Pack,Neuromuscular Re-ed, Coordination Retraining,Manual Therapy Precautions Posterior Hip Precautions No Hip Flexion > 90 degrees,No Hip Internal Rotation,No Hip Adduction Weight Bearing Status Weight Bearing Status Weight Bear as Tolerated Allowed Weight Bearing Amount (enter % LLE WBAT or #) (%) Recommendations To Nursing Amount of Assist Needed Mechanical Lift Discharge Recommendations PT Discharge Recommendations SNF Rehab Transportation Needs at Discharge Wheelchair/Cabulance
--- NOTE | 2023-08-08 11:54 | PM.PN.1 ---
Subjective Subjective Date Patient Seen: 08/08/23 Time Patient Seen: 09:30 Interval history: CC: L hip fracture Pt is feeling ok today more oriented suspect yesterday may have betzy having oxycodone reaction. Plan will be to try small amount of iv dilaudid prior to working with PT today. Yesterday they recommended SNF rehab after working with him, we shall see today. [facility] is explopring options. He was down with a broken hip for several days before coming in so there is certainly some deconditioning. Exam Vital Signs (past 8 hours): - 08/08/23 09:00 Temperature 97.3 F L Pulse Rate 78 Respiratory Rate 16 Blood Pressure 147/74 H Pulse Oximetry 96 Oxygen Delivery Method Room Air Oxygen Flow Rate 0 Narrative Exam Narrative: snoozing easily awakened HENMT Other: normocephalic atraumatic Resp Other: clear to auscultation bilaterally on room air Cardio Other: regular rate s1/s2 GI Other: soft nontender active bowel sounds Neuro Other: alert oriented normally conversant Extrem Other: LLE with incisions under dressings - distal NV intact - able to range it around in bed without too much pain SCDs on Objective Labs 08/08/23 05:12 08/08/23 05:12 Labs: Laboratory Results - last 24 hr 08/07/23 08/07/23 08/08/23 16:05 17:40 05:12 WBC 13.6 H D 9.4 RBC 3.70 L 3.48 L Hgb 11.3 L 10.8 L Hct 34.1 L 32.1 L MCV 92.2 92.3 MCH 30.5 31.0 MCHC 33.1 33.6 RDW 13.9 13.9 Plt Count 135 L 113 L Neut % (Auto) 71.6 66.4 Lymph % (Auto) 14.7 L 15.9 L [place] % (Auto) 12.1 14.0 Eos % (Auto) 0.9 L 2.9 Baso % (Auto) 0.7 0.8 Neut # (Auto) 9700 H 6300 Lymph # (Auto) 2000 1500 [place] # (Auto) 1700 H 1300 H Eos # (Auto) 100 300 Baso # (Auto) 100 100 Sodium 138 Potassium 4.0 Chloride 111 H Carbon Dioxide 24 BUN 21 H Creatinine 0.78 Estimated GFR > 60 BUN/Creatinine Ratio 26.9 H Glucose 97 Calcium 8.3 L Total Bilirubin 0.6 AST 47 ALT 20 Alkaline Phosphatase 57 Total Protein 5.8 L Albumin 3.0 L Globulin 2.8 Albumin/Globulin Ratio 1.1 Vitamin B12 368 Folate 5.5 Urine Color Yellow Urine Appearance Clear Urine pH 6.0 Ur Specific [place] <=1.005 Urine Protein Negative Urine Glucose (UA) Negative Urine Ketones Negative Urine Occult Blood Trace-intact Urine Nitrate Negative Urine Bilirubin Negative Urine Urobilinogen 1.0 Ur Leukocyte Esterase Negative Urine RBC 0-1/hpf Urine WBC 0-1/hpf Ur Squamous Epith Cells 0-1 /hpf Urine Bacteria None seen Ur Culture Indicated? Cult not indicated Vol Urine Centrifuged 10ml (spun) [facility] Social History household members: none Smoking Status: Current every day smoker Assessment & Plan Assessment & Plan narrative: 72-year-old male sustained a ground level fall onto his buttocks and sustained a left hip fracture, postop day 1. From open reduction internal fixation #L hip fracture POD #1 s/p repair continue to work with PT - CM exploring discharge options. cleared for dc from ortho perspective on asa 81 bid. #Acute delirium of unclear etiology. Unrevealing workup, patient is improved today suspect this may have betzy pain med reaction, try to avoid oxycodone. OK to continue rocephin for now he was down for a while could have UTI. continue lorazepam as needed, Haldol as needed and Seroquel at night as needed #Hypertension essential Stable continue home meds #Hyperlipidemia Stable continue home meds #Leukocytosis with neutrophilic predominance Much improved after 1 day of abx. Suspect postop/urine infection. Continue abx for now. Dispo: pending improvement, possibly to rehab tomorrow PCP: Naomi MDM: daughter code: DNR Diet: general DVT: SCDs Quality VTE Deep Vein Thrombosis/Pulmonary Embolism Present on Admission: No
--- NOTE | 2023-08-08 12:05 | OT.IP.TRT ---
Current Diagnoses Other specified abnormal findings of blood chemistry (08/05/23) Fracture of unspecified part of neck of left femur, initial encounter for closed fracture (08/05/23) Unspecified intracapsular fracture of left femur, initial encounter for closed fracture (08/05/23) Surgery Performed Operation Date: 08/06/23 13:00 Actual Procedures p LEFT HIP CONCHA REPLACEMENT(Left) - Rosanne Ozuna MD Occupational Therapy Treatment Note M2 OT-IP Current Condition Start: 08/07/23 14:18 Freq: Status: Active Protocol: Document 08/07/23 14:18 [facility] (Rec: 08/07/23 14:32 [facility] [id number]) Occupational Therapy Current Condition Current Condition Evaluation Date 08/07/23 Treatment Diagnosis GLF s/P L ALESSANDRA posterior precautions. Diagnosis Onset Date 08/06/23 Post Operative Precautions Posterior Hip Precautions No Hip Flexion > 90 degrees,No Hip Internal Rotation,No Hip Adduction M3 OT- IP Subjective and Pain Start: 08/07/23 14:18 Freq: Status: Active Protocol: Document 08/08/23 12:16 [facility] (Rec: 08/08/23 12:34 [facility] [id number]) OT- Subjective Occupational Therapy Visit Type Type Treatment Note Visit Start Time 11:25 Visit Stop Time 12:05 Occupational Therapy Visit Comments Patient Comments Pt agreed to get up. Patient/Caregiver Goals To get better. OT Pain Assessment Pain When Pain Assessed At Rest Pain Present Pain Present Denied Pain M4 OT- IP ADL's Start: 08/07/23 14:18 Freq: Status: Active Protocol: Document 08/08/23 12:16 [facility] (Rec: 08/08/23 12:34 [facility] [id number]) OT [id number] Comments OT Self-Feeding Comments Not at meal time. OT ADL-Grooming Comments OT Grooming Comments Not performed. OT ADL-Oral Care Comments Oral Care Comments Not performed. OT ADL-Dressing General Eval Lower Body Dressing Ability Maximum Assistance Areas Needing Assistance Underpants/Brief,Socks Comments OT Dressing Comments Assist to help gordo his brief over his feet and up over his hips while another person assisting to stand with him with the FWW. Educated pt to gordo the LLE first and take out last. OT ADL-Toileting Comments OT Toileting Comments Not performed. OT ADL-Bathing Comments OT Bathing Comments Not performed, sponge bath more appropriate at this time. M5 OT- IP IADL's Start: 08/07/23 14:18 Freq: Status: Active Protocol: Document 08/07/23 14:18 [facility] (Rec: 08/07/23 14:32 [facility] [id number]) OT-Instrumental Activities of Daily Living Deficits IADL Deficits Identified Deficits Home Safety Awareness Awareness of Need for Assistance at Home Decreased Awareness Ability to Problem Solve Emergency Unable to Problem Solve Situations Home Safety Comments Pt not aware at the hospital and states thinks he is at home. Medication Management Medication Management Comments At this time pt will require assist. Money Management Money Management Comments At this time pt will require assist. Meal Preparation Meal Preparation Comments At this time pt will require assist. Valuation Manager Valuation Manager Comments At this time pt will require assist. M6 OT- IP Functional Cognition Start: 08/07/23 14:18 Freq: Status: Active Protocol: Document 08/08/23 12:16 [facility] (Rec: 08/08/23 12:34 [facility] [id number]) Cognitive Factors Limiting Selfcare Function Cognitive Ability Level of Alertness Alert Patient Orientation Name,Place,Situation Attention Span Ability Capable of Focused Attention, Capable of Sustained Attention Ability to Follow Commands Able to Follow One Step Commands with Increased Time, Able to Follow One Step Commands with Repetition Memory Description 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,Working Impaired Safety Awareness Decreased Recall of Precautions,Decreased Ability to Apply Precautions Cognitive Comments Cognitive Assessment Comments Pt more orientated to name and place and able to recall 2/3 hip precautions after education . Pt is pleasant and able to follow commands. Pt is forgetful and has decreased STM and needing step by step commands to follow. Pt will benefit from cognitive assessment. Pt having difficulty to comprehend commands. OT- Vision and Hearing OT- Vision Assessment Vision Assessment Comments Pt intact for visual field and convergence today and able to read the clock accurately. M7 OT- IP Mobility and Balance Start: 08/07/23 14:18 Freq: Status: Active Protocol: Document 08/08/23 12:16 [facility] (Rec: 08/08/23 12:34 [facility] [id number]) OT- Bed Mobility Assessment Supine to Sit Supine to Sit Assist Maximum Assistance,2 Person Assistance OT-Transfer Assessment Sit to and From Stand Sit to and from Stand Maximum Assistance,2 Person Assistance Transfers Transfer Ability Maximum Assistance,2 Person Assistance Technique Transfer Destination Bed,Chair Transfer Technique Stand Step Pivot Devices Transfer Assistive Devices Gait Belt,Front Wheeled Walker Comments Mobility Comments Assist to help move his LLE to the edge of the bed, assist for his hips, and assist for balance as pt heavily leans on the left side and decreased awareness of his midline. OT- Balance Assessment Sitting Balance and Reactions Static Sitting Balance Ability Poor Dynamic Sitting Balance Ability Poor Standing Balance and Reactions Static Standing Balance Ability Poor Dynamic Standing Balance Ability Poor M8 OT- IP Objective Assessments Start: 08/07/23 14:18 Freq: Status: Active Protocol: Document 08/08/23 12:16 [facility] (Rec: 08/08/23 12:34 [facility] [id number]) OT Strength Comments Strength Comments LUE 4/5 and RUE 5/5 OT- Coordination Assessment Upper Extremity Finger to Nose Test Left UE Impaired OT-Muscle Tone Assessment Muscle Tone WNL No Comments Muscle Tone Comments Noted spasticity in BUE. OT Sensation Assessment Comments Summary Comments Decreased for propioception for pt L UE>RLE. M9 OT- IP Assessment and Plan Start: 08/07/23 14:18 Freq: Status: Active Protocol: Document 08/08/23 12:16 [facility] (Rec: 08/08/23 12:34 [facility] [id number]) OT Summary Assessment and Plan Potential Rehabilitation Potential Fair Analytic Complexity at Evaluation Moderate Summary OT Impairments Pain,Strength,Balance, Functional Cognition, Functional Mobility,Self- Feeding,Grooming,Dressing, Toileting,Bathing,Toilet Transfers,Shower Transfers, Activity Tolerance Progress Towards Goals Slow Progress due to Pain,Slow Progress due to Medical Issues,Slow Progress due to Activity Tolerance,Slow Progress due to Cognition Assessment Summary Pt today noted heavily leaning to the left and not aware of his poor awareness to midline at this time. Pt having spasticity with BUE when tested. Able to notify nurse of pt's neurological symptoms today. Pt is cooperative but needing step by step commands in addition to tactile cues to move. Pt will benefit from skilled rehab. Goals Self-Feeding Goal Standby Assistance Grooming Goal Standby Assistance Dressing Goal Minimal Assistance Toileting Goal Minimal Assistance Bathing Goal Moderate Assistance Toilet Transfer Goal Minimal Assistance Shower Transfer Goal Minimal Assistance Days to Meet Goals 20 Frequency of Treatment Frequency Of Treatment Once a Day Treatment Plan OT Treatment Plan ADL Training,Functional Cognition Training,Functional Mobility,Patient/Family Education,Discharge Planning Other Treatment Recommendations and Next SLUMS Treatment Focus Discharge Recommendations OT Discharge Recommendations SNF Rehab Transportation Needs at Discharge Wheelchair/Cabulance
[2023-08-08 13:00] VITALS: BP 159/65; PULSE 69; RESP 16; TEMP 36.2; O2SAT 97
--- NOTE | 2023-08-08 14:10 | PT.IPTN ---
Current Diagnoses Other specified abnormal findings of blood chemistry (08/05/23) Fracture of unspecified part of neck of left femur, initial encounter for closed fracture (08/05/23) Unspecified intracapsular fracture of left femur, initial encounter for closed fracture (08/05/23) Surgery Performed Operation Date: 08/06/23 13:00 Actual Procedures p LEFT HIP CONCHA REPLACEMENT(Left) - Rosanne Ozuna MD Physical Therapy Treatment Note M2 PT-IP Current Condition Start: 08/07/23 12:11 Freq: NEEDED Status: Active Protocol: Document 08/07/23 10:05 AB (Rec: 08/07/23 12:40 AB [id number]) Physical Therapy Current Condition Current Condition Evaluation Date 08/07/23 Treatment Diagnosis s/p L hip hemiarthorplasty; difficulty in walking Onset Date 08/05/23 M3 PT-IP Subjective Start: 08/07/23 12:11 Freq: NEEDED Status: Active Protocol: Document 08/08/23 14:10 AB (Rec: 08/08/23 15:53 AB [id number]) Subjective Physical Therapy Visit Type Type Treatment Note Visit Start Time 14:10 Visit Stop Time 15:00 Number of ADOPTION COUNSELOR Visits 0 Physical Therapy Visit Comments Patient Comments agreeable to do PT M4 PT-IP Mobility and Gait Start: 08/07/23 12:11 Freq: NEEDED Status: Active Protocol: Document 08/08/23 14:10 AB (Rec: 08/08/23 15:53 AB [id number]) PT-Bed Mobility Assessment Supine to Sit Supine to Sit Moderate Assistance,Bedrails Sit to Supine Sit to Supine Maximum Assistance,Bedrails PT-Transfer Assessment Sit to and From Stand Sit to and from Stand Maximum Assistance,1 Person Assistance,Use of Upper Extremities Equipment Transfer Assistive Device Gait Belt,Front Wheeled Walker Orthotic/Prosthetic Devices or Brace: No Transfers Transfer Destination Chair Transfer Technique Stand Step Pivot Transfer Ability Level of Assist Maximum Assistance,1 Person Assistance,Use of Upper Extremities Comments Mobility Comments pt supine in bed and agreeable to do PT. reviewed posterior hip precautions with pt. pt unable to recall. pt completed LLE heel slides and SAQs 5 reps x 5 sec hold in bed. pt completed supine to sit mod A and max cues for techniques . completed sit to stand from EOB max A and max cues for precautions. pt was able to stand requiring max A and cues for L quads activation. cued for upright posture. pt sat back on EOB. pt completed sit to stand again max A and max cues and step transfer to chair using FWW max A and max cues. required max A to stabilize L knee. pt rested. pt requesting to go back to bed but pt agreed to walk to the bed. positioned chair away from the bed. pt completed sit to stand max A and cues and ambulated to the bed using FWW max A and max cues. NAC assisted with chair follow. pt continues to have L knee buckling but with better control but inconsistent requiring max cues and stabilization. pt completed sit to supine max A and max cues. positioned pt in bed. call light and table placed within reach. Gait Assessment Gait Gait Assistance Required: Maximum Assistance Distance (Feet) 8 Able to Maintain Weight Bearing Status Yes During Gait Assistive Devices Assistive Device Gait Belt,Front Wheeled Walker Orthotic/Prosthetic Devices or Brace: No Gait Deviations General Gait Pattern Antalgic,Decreased Stride Length,Decreased Feet Clearance,Step-to Gait Factors Limiting Gait Function Factors Limiting Gait Function Decreased Activity Tolerance, Decreased Strength,Difficulty Following Directions,Poor Balance,Poor Safety Awareness M5 PT-IP Objective Assessments Start: 08/07/23 12:11 Freq: NEEDED Status: Active Protocol: Document 08/07/23 10:05 AB (Rec: 08/07/23 12:40 AB [id number]) Orientation Orientation/Cognition Level of Alertness Confusional State Orientation Name Language Function Ability Hard of Hearing Safety Awareness Decreased Safety Awareness Memory Description 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,Lean [employer] Belt Impaired Gross Range of Motion Lower Extremity ROM Assessment Within Functional Limits Strength Lower Extremity Strength Assessment Left Impaired Hip 3-/5 Knee 3-/5 Muscle Tone Muscle Tone WNL Yes M6 PT-IP Treatment Start: 08/07/23 12:11 Freq: NEEDED Status: Active Protocol: Document 08/08/23 14:10 AB (Rec: 08/08/23 15:53 AB [id number]) Physical Therapy Treatment Education Education Provided Precautions,Safety M7 PT-IP Assessment and Plan Start: 08/07/23 12:11 Freq: NEEDED Status: Active Protocol: Document 08/08/23 14:10 AB (Rec: 08/08/23 15:53 AB [id number]) PT Summary Assessment and Plan Potential Rehabilitation Potential Fair Summary Impairments Pain,ROM,Strength,Balance, Coordination,Sensation,Tone, Cognition,Bed Mobility, Transfers,Gait,Activity Tolerance Progress Towards Goals Slow Progress due to Activity Tolerance,Slow Progress - Other Assessment Summary pt progressing slowly with mobility requiring max A x 1 and max cues for all tasks. pt able to follow instructions better today compared to yesterdays but continue to have memory issues and unable to recall his posterior hip precautions. pt will require SNF rehab to improve overall strength and mobility independence. Goals Bed Mobility Goal Minimal Assistance Transfer Goal Minimal Assistance,Front Wheeled Walker Gait Goal Minimal Assistance,Front Wheel Walker Gait Distance 50 Other Goals improve bed mobility, transfers, ambulation using FWW ~ 150 ft SBA up/down 1 step using FWW SBA up/down 7 steps R rail + SPC SBA Days to Meet Goals 10 Frequency of Treatment Frequency Of Treatment Twice a Day Treatment Plan Physical Therapy Treatment Plan Bed Mobility Training,Transfer Training,Gait Training, Therapeutic Exercise,Balance Retraining,Post Op Education, Discharge Planning,Hot or Cold Pack,Neuromuscular Re-ed, Coordination Retraining,Manual Therapy Precautions Posterior Hip Precautions No Hip Flexion > 90 degrees,No Hip Internal Rotation,No Hip Adduction Weight Bearing Status Weight Bearing Status Weight Bear as Tolerated Allowed Weight Bearing Amount (enter % LLE WBAT or #) (%) Recommendations To Nursing Amount of Assist Needed 2 Person Assist Discharge Recommendations PT Discharge Recommendations SNF Rehab Transportation Needs at Discharge Wheelchair/Cabulance
--- NOTE | 2023-08-08 15:15 | CM.DPNOTE ---
Addendum entered by Millie Desai MSW 08/08/23 15:45: PASRR completed, behind facesheet. SL Original Note: DCP Note CORPORATE EVENTS DIRECTOR reviewed EMR. Per Dr. Salgado, pt normally spry at baseline and his disorientation from yesterday was far from his baseline. Hopeful that changing his pain medication would reduce confusion. Hopeful for SNF placement for him prior to returning home. CORPORATE EVENTS DIRECTOR met with pt in room. Pt A/O. Able to hold logical conversation. Asked appropriate questions. CORPORATE EVENTS DIRECTOR reviewed PT/OT recommendations for safe DC. Pt agreeable to SNF placement. Preference is to remain in [place]/as close to home as possible. Pt reported feeling emotional about having to rely on someone else and that he is used to being indept. Pt agreed to allow CM team to coordinate DCP with dtkin Bell. CORPORATE EVENTS DIRECTOR spoke with Shaneka from , kindly agreed to review. Report they would need to see documentation on his mentation for 24hours without haldol, seroquel, and or ativan. Per chart review, last dose at this time were haldol 6.19 1am, seroquel 6.18 1900, and last ativan was 6.18 at 1600. Acceptance pending. Pt would have to agree to not smoke while at their facility, and they can offer a patch or gum to help with cravings. CORPORATE EVENTS DIRECTOR had lengthy phone conversation with dtkin Bell ([phone]). Dtr has been working hard on getting home set up for him, to not need to navigate his many stairs and stay on one floor. Dtr working on getting him a walker, new bed, and bedside commode. Dtr in agreement with rehab. CORPORATE EVENTS DIRECTOR answered questions to best of ability. Dtr concerned about pt smoking, CORPORATE EVENTS DIRECTOR reviewed their non smoking policy. Dtr reported she may reach out to [facility] to inquire about coming up with a compromise where she come and wheel him out a few times daily for him to smoke. CORPORATE EVENTS DIRECTOR updated RN on current DCP. RN reported he has been appropriate/not needing haldol/seroquel/ativan throughout day. RN will reach out to Dr. Salgado about canceling those medications. P: anticipate SNF placement, acceptance pending from [facility]. If denied, additional referrals needed. CM team will continue to follow closely. EDD Crane
[2023-08-08] MEDS: cefTRIAXone 1,000 MG in SODIUM CHLORIDE 0.9% 100 ML 200 MG IV (18:00)
--- NOTE | 2023-08-08 18:24 | PC.NURSE ---
Patient is A&OX3 this a.m. VSS, afebrile on RA. He is continent and using the urinal and is not agitated or impulsive. He is cooperative with care. This afternoon he becomes slightly forgetful, but he remains pleasant and calm. He is able to take few steps with FWW to chair. He is agreeable to sitting in the chair for a short while today. He has visitors this evening including Arabella, who are supportive. Continuous monitoring.
[2023-08-08 20:00] VITALS: BP 144/86; PULSE 74; RESP 18; TEMP 36.6; O2SAT 94
[2023-08-08] MEDS: ATORVASTATIN 20 MG TABLET 40 MG PO (20:37)
[2023-08-09 08:00] VITALS: BP 125/61; PULSE 80; RESP 18; TEMP 36.7; O2SAT 97
[2023-08-09] MEDS: DOCUSATE 100 MG CAPSULE PO ×2 (08:39→20:41)
[2023-08-09] MEDS: METOPROLOL IR 50 MG TABLET PO ×2 (08:39→20:41)
[2023-08-09] MEDS: ASPIRIN EC 81 MG TABLET PO ×2 (08:39→20:41)
--- NOTE | 2023-08-09 09:23 | PT.IPTN ---
Current Diagnoses Other specified abnormal findings of blood chemistry (08/05/23) Fracture of unspecified part of neck of left femur, initial encounter for closed fracture (08/05/23) Unspecified intracapsular fracture of left femur, initial encounter for closed fracture (08/05/23) Surgery Performed Operation Date: 08/06/23 13:00 Actual Procedures p LEFT HIP CONCHA REPLACEMENT(Left) - Rosanne Ozuna MD Physical Therapy Treatment Note M2 PT-IP Current Condition Start: 08/07/23 12:11 Freq: NEEDED Status: Active Protocol: Document 08/07/23 10:05 AB (Rec: 08/07/23 12:40 AB [id number]) Physical Therapy Current Condition Current Condition Evaluation Date 08/07/23 Treatment Diagnosis s/p L hip hemiarthorplasty; difficulty in walking Onset Date 08/05/23 M3 PT-IP Subjective Start: 08/07/23 12:11 Freq: NEEDED Status: Active Protocol: Document 08/09/23 10:15 TS (Rec: 08/09/23 10:33 TS [id number]) Subjective Physical Therapy Visit Type Type Treatment Note Visit Start Time 09:23 Visit Stop Time 09:46 Number of MEDICAID COLLECTION SPECIALIST Visits 1 Physical Therapy Visit Comments Patient Comments Pt found resting in bed, reports having hallucinations last night and is trying a smoke patch. Pt is agreeable to PT. Therapy Pain Assessment Pain When Pain Assessed During Mobility Pain Present Pain Present Pain Reported M4 PT-IP Mobility and Gait Start: 08/07/23 12:11 Freq: NEEDED Status: Active Protocol: Document 08/09/23 10:15 TS (Rec: 08/09/23 10:33 TS [id number]) PT-Bed Mobility Assessment Supine to Sit Supine to Sit Moderate Assistance,Bedrails Scooting Scooting to Edge of Bed Contact Guard Assistance PT-Transfer Assessment Sit to and From Stand Sit to and from Stand Maximum Assistance,1 Person Assistance,Use of Upper Extremities Equipment Transfer Assistive Device Gait Belt,Front Wheeled Walker Orthotic/Prosthetic Devices or Brace: No Comments Mobility Comments Pt recalled 1/3 hip precautions prior to mobility( no crossing of legs). Supine to sit ModA x1 for uprighting trunk and LLE assistance. He performed STS with FWW MaxA, pt demonstrates good carryover from previous session. He ambulated ~10'Price with FWW, pt has a slow step to gait. Pt ambulated to chair, was left in chair, all needs met. Gait Assessment Gait Gait Assistance Required: Minimum Assistance Distance (Feet) 10 Able to Maintain Weight Bearing Status Yes During Gait Assistive Devices Assistive Device Gait Belt,Front Wheeled Walker Orthotic/Prosthetic Devices or Brace: No Gait Deviations General Gait Pattern Antalgic,Decreased Stride Length,Decreased Feet Clearance,Step-to Gait Factors Limiting Gait Function Factors Limiting Gait Function Decreased Activity Tolerance, Decreased Strength,Difficulty Following Directions,Poor Balance,Poor Safety Awareness Comments Gait Comments See mobility comments PT-Balance Assessment Sitting Balance and Reactions Static Sitting Balance Ability Fair Dynamic Sitting Balance Ability Fair Standing Balance and Reactions Static Standing Balance Ability Fair Dynamic Standing Balance Ability Fair Device Used FWW M5 PT-IP Objective Assessments Start: 08/07/23 12:11 Freq: NEEDED Status: Active Protocol: Document 08/07/23 10:05 AB (Rec: 08/07/23 12:40 AB [id number]) Orientation Orientation/Cognition Level of Alertness Confusional State Orientation Name Language Function Ability Hard of Hearing Safety Awareness Decreased Safety Awareness Memory Description 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,Jail Impaired Gross Range of Motion Lower Extremity ROM Assessment Within Functional Limits Strength Lower Extremity Strength Assessment Left Impaired Hip 3-/5 Knee 3-/5 Muscle Tone Muscle Tone WNL Yes M6 PT-IP Treatment Start: 08/07/23 12:11 Freq: NEEDED Status: Active Protocol: Document 08/09/23 10:15 TS (Rec: 08/09/23 10:33 TS [id number]) Physical Therapy Treatment Education Education Provided Precautions,Safety M7 PT-IP Assessment and Plan Start: 08/07/23 12:11 Freq: NEEDED Status: Active Protocol: Document 08/09/23 10:15 TS (Rec: 08/09/23 10:33 TS [id number]) PT Summary Assessment and Plan Potential Rehabilitation Potential Fair Summary Impairments Pain,ROM,Strength,Balance, Coordination,Sensation,Tone, Cognition,Bed Mobility, Transfers,Gait,Activity Tolerance Progress Towards Goals Slow Progress due to Activity Tolerance,Slow Progress - Other Assessment Summary Sergei is making some progress with his mobility but continues to be limited by pain and weakness. He requires ModA for bed mobility with HOB elevated. He continues to require MaxA for STS with FWW. He progressed his gait to ~10 'Price with FWW. Pt demonstrates increased wbering on LLE with gait and STS. PT continues to recommend SNF rehab. Goals Bed Mobility Goal Minimal Assistance Transfer Goal Minimal Assistance,Front Wheeled Walker Gait Goal Minimal Assistance,Front Wheel Walker Gait Distance 50 Other Goals improve bed mobility, transfers, ambulation using FWW ~ 150 ft SBA up/down 1 step using FWW SBA up/down 7 steps R rail + SPC SBA Days to Meet Goals 10 Frequency of Treatment Frequency Of Treatment Twice a Day Treatment Plan Physical Therapy Treatment Plan Bed Mobility Training,Transfer Training,Gait Training, Therapeutic Exercise,Balance Retraining,Post Op Education, Discharge Planning,Hot or Cold Pack,Neuromuscular Re-ed, Coordination Retraining,Manual Therapy Precautions Posterior Hip Precautions No Hip Flexion > 90 degrees,No Hip Internal Rotation,No Hip Adduction Weight Bearing Status Weight Bearing Status Weight Bear as Tolerated Allowed Weight Bearing Amount (enter % LLE WBAT or #) (%) Recommendations To Nursing Amount of Assist Needed 2 Person Assist Discharge Recommendations PT Discharge Recommendations SNF Rehab Transportation Needs at Discharge Wheelchair/Cabulance
[2023-08-09] MEDS: NICOTINE 14 PATCH 14 MG TOP (10:25)
--- NOTE | 2023-08-09 10:40 | PM.PNPO.1 ---
Subjective Subjective Date Patient Seen: 08/09/23 Time Patient Seen: 10:40 Interval history: Pain is mild this morning. Denies fever or chills. No nausea or vomiting. Exam Vital Signs (past 8 hours): - 08/09/23 08:00 Temperature 98.1 F Pulse Rate 80 Respiratory Rate 18 Blood Pressure 125/61 Pulse Oximetry 97 Oxygen Flow Rate 0 Oxygen Delivery Method Room Air Oxygen Flow Rate 0 Narrative Exam Narrative: 72-year-old male resting comfortably in bed in no apparent distress. Dressing is clean, dry and intact. Motor functions intact bilateral lower extremities. Sensation grossly intact to light touch bilateral lower extremities. Const General: cooperative and comfortable Nutritional Appearance: average body habitus Orientation: alert Resp Effort & Inspection: normal respiratory effort and able to speak in complete sentences Objective Labs 08/08/23 05:12 08/08/23 05:12 [facility], [facility] Social History household members: none Smoking Status: Current every day smoker Assessment & Plan Post-op Postoperative Procedures: Procedures Operation Date: 08/06/23 13:00 Actual Procedure Side Surgeon p LEFT HIP CONCHA REPLACEMENT Left Rosanne Ozuna MD Postoperative day: 3 Postoperative status narrative: Stable status post left hip unipolar Postoperative plan narrative: Weightbearing as tolerated, posterior hip precautions Multimodal pain management Follow up in outpatient orthopedic clinic for recheck in 2 weeks Discharge to nursing home facility when medically stable Quality VTE Deep Vein Thrombosis/Pulmonary Embolism Present on Admission: No
--- NOTE | 2023-08-09 13:40 | OT.IP.TRT ---
Current Diagnoses Other specified abnormal findings of blood chemistry (08/05/23) Fracture of unspecified part of neck of left femur, initial encounter for closed fracture (08/05/23) Unspecified intracapsular fracture of left femur, initial encounter for closed fracture (08/05/23) Surgery Performed Operation Date: 08/06/23 13:00 Actual Procedures p LEFT HIP CONCHA REPLACEMENT(Left) - Rosanne Ozuna MD Occupational Therapy Treatment Note M2 OT-IP Current Condition Start: 08/07/23 14:18 Freq: Status: Active Protocol: Document 08/07/23 14:18 [facility] (Rec: 08/07/23 14:32 [facility] [id number]) Occupational Therapy Current Condition Current Condition Evaluation Date 08/07/23 Treatment Diagnosis GLF s/P L ALESSANDRA posterior precautions. Diagnosis Onset Date 08/06/23 Post Operative Precautions Posterior Hip Precautions No Hip Flexion > 90 degrees,No Hip Internal Rotation,No Hip Adduction M3 OT- IP Subjective and Pain Start: 08/07/23 14:18 Freq: Status: Active Protocol: Document 08/09/23 13:40 [facility] (Rec: 08/09/23 14:22 [facility] [id number]) OT- Subjective Occupational Therapy Visit Type Type Treatment Note Visit Start Time 13:10 Visit Stop Time 13:40 Occupational Therapy Visit Comments Patient Comments Pt agreed to do cognitive assessment and pt's daughter in the room. Patient/Caregiver Goals To get better. OT Pain Assessment Pain When Pain Assessed At Rest Pain Present Pain Present Denied Pain M6 OT- IP Functional Cognition Start: 08/07/23 14:18 Freq: Status: Active Protocol: Document 08/09/23 13:40 [facility] (Rec: 08/09/23 14:22 [facility] [id number]) Cognitive Factors Limiting Selfcare Function Cognitive Ability Level of Alertness Alert Patient Orientation Name,Age,Birthday,Month,Date, Year,Day of Week,Place, Situation Attention Span Ability Capable of Focused Attention, Capable of Sustained Attention Ability to Follow Commands Able to Follow One Step Commands Memory Description 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,Working Impaired Safety Awareness Decreased Recall of Precautions,Decreased Ability to Apply Precautions Cognitive Tests SLUMS Pt scored 14/30 which implies dementia, however pt has been sensitive pain medication and family history on having a hard time with anesthesia. Cognitive Comments Cognitive Assessment Comments Pt a bit labile today. Pt still not able to recall his precautions and needing reminders to follow them. Pt states prior did not have the best memory. Pt's daughter agreed that mentally pt is not at his baseline as prior living on his own and taking care of himself. Pt's daughter did also agreed that pt has episodes of poor balance starting last year and leaning backwards at times. Suggested may be beneficial for pt to see a neurologist- per head CT mild hydrocephalus. M9 OT- IP Assessment and Plan Start: 08/07/23 14:18 Freq: Status: Active Protocol: Document 08/09/23 13:40 [facility] (Rec: 08/09/23 14:22 [facility] [id number]) OT Summary Assessment and Plan Potential Rehabilitation Potential Fair Analytic Complexity at Evaluation Moderate Summary OT Impairments Pain,Strength,Balance, Functional Cognition, Functional Mobility,Self- Feeding,Grooming,Dressing, Toileting,Bathing,Toilet Transfers,Shower Transfers, Activity Tolerance Progress Towards Goals Progressing Toward Goals Assessment Summary Today pt not leaning to the left as much and able better awareness on his left hand to be able to touch close to his nose versus touching his check yesterday. Pt scored 14/30 on the SLUMS which implies dementia, however pt states is sensitive to medications, just had surgery recently , and per pt' s daughter has family history on difficulty with anesthesia. Suggested would be beneficial to see a neurologist. Pt yesterday leaning way over on his surgical side and decreased awareness of midline. Pt's chart states mild hydrocephalus which may also be contributing to his memory and balance issues. Pt to go to skilled rehab when medically stable. Goals Self-Feeding Goal Standby Assistance Grooming Goal Standby Assistance Dressing Goal Minimal Assistance Toileting Goal Minimal Assistance Bathing Goal Moderate Assistance Toilet Transfer Goal Minimal Assistance Shower Transfer Goal Minimal Assistance Days to Meet Goals 20 Frequency of Treatment Frequency Of Treatment Once a Day Treatment Plan OT Treatment Plan ADL Training,Functional Cognition Training,Functional Mobility,Patient/Family Education,Discharge Planning Discharge Recommendations OT Discharge Recommendations SNF Rehab Transportation Needs at Discharge Wheelchair/Cabulance
--- NOTE | 2023-08-09 13:52 | CM.DPC ---
DCP SNF Planning Cont: Per , pt has been off Haldol/Seroquel for 48 hours and no behaviors and ordered nicotine patch for likely smoking cessation needs. SW spoke to [facility] admissions and updated and they confirm that DNS reviewed and some concerns with pt's fixation on smoking and need to see pt tolerating nicotine patch overnight and then can likely accept tomorrow Fri if pt agreeable with no-smoking policy. MARIELY met bedside with pt and explained role and updated him on above and he confirms that he would rather be smoking cigarettes but agreeable to the Patch and no-smoking policy at [facility] as he knows he cannot safely discharge home alone from the hospital. MARIELY updated MD and he anticipates pt discharge to SNF tomorrow Wednesday 08/09. PASRR previously completed. Plan: SW to follow with [facility] in the AM to confirm plan of discharge to their facility tomorrow before safe discharge home with local Dtr assist. EDD Albert
--- NOTE | 2023-08-09 15:50 | PT.IPTN ---
Current Diagnoses Other specified abnormal findings of blood chemistry (08/05/23) Fracture of unspecified part of neck of left femur, initial encounter for closed fracture (08/05/23) Unspecified intracapsular fracture of left femur, initial encounter for closed fracture (08/05/23) Surgery Performed Operation Date: 08/06/23 13:00 Actual Procedures p LEFT HIP CONCHA REPLACEMENT(Left) - Rosanne Ozuna MD Physical Therapy Treatment Note M2 PT-IP Current Condition Start: 08/07/23 12:11 Freq: NEEDED Status: Active Protocol: Document 08/07/23 10:05 AB (Rec: 08/07/23 12:40 AB [id number]) Physical Therapy Current Condition Current Condition Evaluation Date 08/07/23 Treatment Diagnosis s/p L hip hemiarthorplasty; difficulty in walking Onset Date 08/05/23 M3 PT-IP Subjective Start: 08/07/23 12:11 Freq: NEEDED Status: Active Protocol: Document 08/09/23 16:20 TS (Rec: 08/09/23 16:29 TS [id number]) Subjective Physical Therapy Visit Type Type Treatment Note Visit Start Time 15:50 Visit Stop Time 16:16 Number of AMBULANCE PARAMEDIC Visits 2 Physical Therapy Visit Comments Patient Comments Pt found resting in bed, is having increased confusion after sleeping. Pt woke up and did not know where he was or how he got to the hospital. Pt did recall why he is here. He calls daughter x2 on phone to help orient him but no answer . pt agreed to PT. Therapy Pain Assessment Pain When Pain Assessed During Mobility Pain Present Pain Present Pain Reported M4 PT-IP Mobility and Gait Start: 08/07/23 12:11 Freq: NEEDED Status: Active Protocol: Document 08/09/23 16:20 TS (Rec: 08/09/23 16:29 TS [id number]) PT-Bed Mobility Assessment Supine to Sit Supine to Sit Moderate Assistance,Bedrails Sit to Supine Sit to Supine Moderate Assistance Scooting Scooting to Edge of Bed Contact Guard Assistance PT-Transfer Assessment Sit to and From Stand Sit to and from Stand Maximum Assistance,1 Person Assistance,Use of Upper Extremities Equipment Transfer Assistive Device Gait Belt,Front Wheeled Walker Orthotic/Prosthetic Devices or Brace: No Comments Mobility Comments Supine to sit ModA for LLE and uprighting trunk. STS from bed MaxA with use of FWW, pt has some psoterior lean and braces LE's against bed to maintain balance. He ambulated in room ~20'Price with FWW. Pt is incontinent and voided on floor/urinal in standing. Pt ambulated back to bed, sit to supine ModA for LE's into bed. Pt laterally scooted for repositioning in bed SBA. Pt was left in bed, RN notified. Gait Assessment Gait Gait Assistance Required: Minimum Assistance Distance (Feet) 20 Able to Maintain Weight Bearing Status Yes During Gait Assistive Devices Assistive Device Gait Belt,Front Wheeled Walker Gait Deviations General Gait Pattern Antalgic,Decreased Stride Length,Decreased Feet Clearance,Step-to Gait Factors Limiting Gait Function Factors Limiting Gait Function Decreased Activity Tolerance, Decreased Strength,Difficulty Following Directions,Poor Balance,Poor Safety Awareness Comments Gait Comments See mobility comments PT-Balance Assessment Sitting Balance and Reactions Static Sitting Balance Ability Fair Dynamic Sitting Balance Ability Fair Standing Balance and Reactions Static Standing Balance Ability Fair Dynamic Standing Balance Ability Fair Device Used FWW M5 PT-IP Objective Assessments Start: 08/07/23 12:11 Freq: NEEDED Status: Active Protocol: Document 08/07/23 10:05 AB (Rec: 08/07/23 12:40 AB [id number]) Orientation Orientation/Cognition Level of Alertness Confusional State Orientation Name Language Function Ability Hard of Hearing Safety Awareness Decreased Safety Awareness Memory Description 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,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 Gross Range of Motion Lower Extremity ROM Assessment Within Functional Limits Strength Lower Extremity Strength Assessment Left Impaired Hip 3-/5 Knee 3-/5 Muscle Tone Muscle Tone WNL Yes M6 PT-IP Treatment Start: 08/07/23 12:11 Freq: NEEDED Status: Active Protocol: Document 08/09/23 16:20 TS (Rec: 08/09/23 16:29 [id number]) Physical Therapy Treatment Education Education Provided Precautions,Safety M7 PT-IP Assessment and Plan Start: 08/07/23 12:11 Freq: NEEDED Status: Active Protocol: Document 08/09/23 16:20 TS (Rec: 08/09/23 16:29 [id number]) PT Summary Assessment and Plan Potential Rehabilitation Potential Fair Summary Impairments Pain,ROM,Strength,Balance, Coordination,Sensation,Tone, Cognition,Bed Mobility, Transfers,Gait,Activity Tolerance Progress Towards Goals Slow Progress due to Pain,Slow Progress due to Activity Tolerance Assessment Summary Sergei is making some progress with his mobility but continues to be limited. He is ModA for bed mobility. He performed STS with MaxA and bracing of LE's against bed. He progressed his gait to ~20' Price with use of FWW. He has increased confusion from when AMBULANCE PARAMEDIC saw him this morning, see subjective. PT is recommending SNF rehab. Goals Bed Mobility Goal Minimal Assistance Transfer Goal Minimal Assistance,Front Wheeled Walker Gait Goal Minimal Assistance,Front Wheel Walker Gait Distance 50 Other Goals improve bed mobility, transfers, ambulation using FWW ~ 150 ft SBA up/down 1 step using FWW SBA up/down 7 steps R rail + SPC SBA Days to Meet Goals 10 Frequency of Treatment Frequency Of Treatment Twice a Day Treatment Plan Physical Therapy Treatment Plan Bed Mobility Training,Transfer Training,Gait Training, Therapeutic Exercise,Balance Retraining,Post Op Education, Discharge Planning,Hot or Cold Pack,Neuromuscular Re-ed, Coordination Retraining,Manual Therapy Precautions Posterior Hip Precautions No Hip Flexion > 90 degrees,No Hip Internal Rotation,No Hip Adduction Weight Bearing Status Weight Bearing Status Weight Bear as Tolerated Allowed Weight Bearing Amount (enter % LLE WBAT or #) (%) Recommendations To Nursing Amount of Assist Needed 2 Person Assist Discharge Recommendations PT Discharge Recommendations SNF Rehab Transportation Needs at Discharge Wheelchair/Cabulance
--- NOTE | 2023-08-09 16:30 | PM.PN.1 ---
Subjective Subjective Date Patient Seen: 08/09/23 Time Patient Seen: 09:00 Interval history: CC: L hip fracture Doing ok this morning starting nicotine patch working with PT No need for ativan or haldol or quetiapine possibly to rehab tomorrow Exam Vital Signs (past 8 hours): Oxygen Delivery Method Room Air Oxygen Flow Rate 0 Narrative Exam Narrative: pleasant elder sitting up in bed working with PT Resp Other: satting well on room air, speaking in full sentences Cardio Other: well perfused minimal pedal edema Extrem Other: moving all extremities, L hip incisions under clean dressings Objective Labs 08/08/23 05:12 08/08/23 05:12 PFS Social History household members: none Smoking Status: Current every day smoker Assessment & Plan Assessment & Plan narrative: 72-year-old male sustained a ground level fall onto his buttocks and sustained a left hip fracture now s/p open reduction internal fixation #L hip fracture Now s/p repair c/o ortho and doing better continue to work with PT - CM exploring discharge options. cleared for dc from ortho perspective on asa 81 bid. #Acute delirium of unclear etiology. Much improved, no use of sedatives, pain controlled #nicotine use disorder nicotine patch #Hypertension essential Stable continue home meds #Hyperlipidemia Stable continue home meds #Leukocytosis with neutrophilic predominance Much improved after 2 days abx. Suspect postop/urine infection. Continue abx for now can dc tomorrow if feeling well Dispo: pending improvement, possibly to rehab tomorrow PCP: Naomi MDM: daughter code: DNR Diet: general DVT: SCDs Quality VTE Deep Vein Thrombosis/Pulmonary Embolism Present on Admission: No
[2023-08-09] MEDS: cefTRIAXone 1,000 MG in SODIUM CHLORIDE 0.9% 100 ML 200 MG IV (17:33)
[2023-08-09 19:00] VITALS: BP 129/54; PULSE 85; RESP 18; TEMP 37.3; O2SAT 97
[2023-08-09] MEDS: ATORVASTATIN 20 MG TABLET 40 MG PO (20:41)
[2023-08-10 03:00] VITALS: BP 125/57; PULSE 75; RESP 16; TEMP 36.6; O2SAT 97
--- NOTE | 2023-08-10 06:49 | PM.PNPO.1 ---
Subjective Subjective Date Patient Seen: 08/10/23 Time Patient Seen: 06:30 Interval history: Patient was found lying awake. Has no complaints of pain this morning. He remembers attempting to ambulate with physical therapy yesterday. Denies any numbness or tingling down his legs. His goals to be able to get up and move so that he can wash himself Exam Vital Signs (past 8 hours): - 08/10/23 03:00 Temperature 97.8 F Pulse Rate 75 Respiratory Rate 16 Blood Pressure 125/57 L Pulse Oximetry 97 Oxygen Flow Rate 0 Oxygen Delivery Method Room Air Oxygen Flow Rate 0 Narrative Exam Narrative: Aquacel dressing over left posterior hip is clean and intact. 5/5 strength in hip flexors, quadriceps, hamstrings, DF, PF, EHL bilaterally. Sensation to light touch intact throughout BLE. Calves soft, compressible, nontender. SCD's were found not applied to LE bilaterally Const General: cooperative and comfortable Orientation: alert and awake Resp Effort & Inspection: normal respiratory effort and able to speak in complete sentences Objective Labs 08/08/23 05:12 08/08/23 05:12 [facility] Social History household members: none Smoking Status: Current every day smoker Assessment & Plan Post-op Postoperative Procedures: Procedures Operation Date: 08/06/23 13:00 Actual Procedure Side Surgeon p LEFT HIP CONCHA REPLACEMENT Left Rosanne Ozuna MD Postoperative day: 4 Postoperative status: doing well Postoperative status narrative: Stable status post left hip unipolar Postoperative plan narrative: Standard total hip replacement protocol with weight-bearing as tolerated and posterior hip precautions Aspirin 81 mg b.i.d. for DVT prophylaxis Reapplied SCDs. They need to be on while in bed. Multimodal pain management Continue to mobilize with physical therapy Plan to discharge to SNF today once approved and medically cleared. Time Spent With Patient Time with patient: 15-24 minutes Quality VTE Deep Vein Thrombosis/Pulmonary Embolism Present on Admission: No
[2023-08-10 08:00] VITALS: BP 131/54; PULSE 87; RESP 18; TEMP 36.8; O2SAT 98
--- NOTE | 2023-08-10 09:00 | PT.IPTN ---
Current Diagnoses Other specified abnormal findings of blood chemistry (08/05/23) Fracture of unspecified part of neck of left femur, initial encounter for closed fracture (08/05/23) Unspecified intracapsular fracture of left femur, initial encounter for closed fracture (08/05/23) Surgery Performed Operation Date: 08/06/23 13:00 Actual Procedures p LEFT HIP CONCHA REPLACEMENT(Left) - Rosanne Ozuna MD Physical Therapy Treatment Note M2 PT-IP Current Condition Start: 08/07/23 12:11 Freq: NEEDED Status: Active Protocol: Document 08/07/23 10:05 AB (Rec: 08/07/23 12:40 AB [id number]) Physical Therapy Current Condition Current Condition Evaluation Date 08/07/23 Treatment Diagnosis s/p L hip hemiarthorplasty; difficulty in walking Onset Date 08/05/23 M3 PT-IP Subjective Start: 08/07/23 12:11 Freq: NEEDED Status: Active Protocol: Document 08/10/23 09:21 TS (Rec: 08/10/23 09:29 TS [id number]) Subjective Physical Therapy Visit Type Type Treatment Note Visit Start Time 09:00 Visit Stop Time 09:20 Number of SOCIAL SERVICES AIDE Visits 3 Physical Therapy Visit Comments Patient Comments Pt found resting in bed, continues to have some confusion and gets emotional at times, he is agreeable to PT. Therapy Pain Assessment Pain When Pain Assessed During Mobility Pain Present Pain Present Pain Reported M4 PT-IP Mobility and Gait Start: 08/07/23 12:11 Freq: NEEDED Status: Active Protocol: Document 08/10/23 09:21 TS (Rec: 08/10/23 09:29 TS [id number]) PT-Bed Mobility Assessment Supine to Sit Supine to Sit Moderate Assistance,Bedrails Scooting Scooting to Edge of Bed Contact Guard Assistance PT-Transfer Assessment Sit to and From Stand Sit to and from Stand Minimal Assistance,1 Person Assistance,Use of Upper Extremities Equipment Transfer Assistive Device Gait Belt,Front Wheeled Walker Orthotic/Prosthetic Devices or Brace: No Comments Mobility Comments Supine to sit ModA for uprighting trunk and LLE assistance to EOB, cues were provided for handrails. STS from bed with Price and BUE support on FWW. He ambulated in room ~20'CGA with FWW and an emerging step thru gait. Pt was left in chair, RN in room . Gait Assessment Gait Gait Assistance Required: Contact Guard Assist Distance (Feet) 20 Able to Maintain Weight Bearing Status Yes During Gait Assistive Devices Assistive Device Gait Belt,Front Wheeled Walker Orthotic/Prosthetic Devices or Brace: No Gait Deviations General Gait Pattern Antalgic,Decreased Stride Length,Decreased Feet Clearance,Step-to Gait Factors Limiting Gait Function Factors Limiting Gait Function Decreased Activity Tolerance, Decreased Strength,Difficulty Following Directions,Poor Balance,Poor Safety Awareness Comments Gait Comments See mobility comments PT-Balance Assessment Sitting Balance and Reactions Static Sitting Balance Ability Fair Dynamic Sitting Balance Ability Fair Standing Balance and Reactions Static Standing Balance Ability Fair Dynamic Standing Balance Ability Fair Device Used FWW M5 PT-IP Objective Assessments Start: 08/07/23 12:11 Freq: NEEDED Status: Active Protocol: Document 08/07/23 10:05 AB (Rec: 08/07/23 12:40 AB [id number]) Orientation Orientation/Cognition Level of Alertness Confusional State Orientation Name Language Function Ability Hard of Hearing Safety Awareness Decreased Safety Awareness Memory Description 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,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 Motion Lower Extremity ROM Assessment Within Functional Limits Strength Lower Extremity Strength Assessment Left Impaired Hip 3-/5 Knee 3-/5 Muscle Tone Muscle Tone WNL Yes M6 PT-IP Treatment Start: 08/07/23 12:11 Freq: NEEDED Status: Active Protocol: Document 08/10/23 09:21 TS (Rec: 08/10/23 09:29 TS [id number]) Physical Therapy Treatment Education Education Provided Precautions,Safety M7 PT-IP Assessment and Plan Start: 08/07/23 12:11 Freq: NEEDED Status: Active Protocol: Document 08/10/23 09:21 TS (Rec: 08/10/23 09:29 TS [id number]) PT Summary Assessment and Plan Potential Rehabilitation Potential Fair Summary Impairments Pain,ROM,Strength,Balance, Coordination,Sensation,Tone, Cognition,Bed Mobility, Transfers,Gait,Activity Tolerance Progress Towards Goals Slow Progress due to Pain,Slow Progress due to Activity Tolerance Assessment Summary Sergei continues to make some progress but remains limited. He required ModA for supine to sit, pt does demonstrate increased strength to move LLE to EOB. He required decreased assist for STS to Price with FWW. He continues to walk a short distance in the room with FWW. He progressed to an emerging step thru gait from a step to gait. PT continues to recommend SNF at this time. Goals Bed Mobility Goal Minimal Assistance Transfer Goal Minimal Assistance,Front Wheeled Walker Gait Goal Minimal Assistance,Front Wheel Walker Gait Distance 50 Other Goals improve bed mobility, transfers, ambulation using FWW ~ 150 ft SBA up/down 1 step using FWW SBA up/down 7 steps R rail + SPC SBA Days to Meet Goals 10 Frequency of Treatment Frequency Of Treatment Twice a Day Treatment Plan Physical Therapy Treatment Plan Bed Mobility Training,Transfer Training,Gait Training, Therapeutic Exercise,Balance Retraining,Post Op Education, Discharge Planning,Hot or Cold Pack,Neuromuscular Re-ed, Coordination Retraining,Manual Therapy Precautions Posterior Hip Precautions No Hip Flexion > 90 degrees,No Hip Internal Rotation,No Hip Adduction Weight Bearing Status Weight Bearing Status Weight Bear as Tolerated Allowed Weight Bearing Amount (enter % LLE WBAT or #) (%) Recommendations To Nursing Amount of Assist Needed 2 Person Assist Discharge Recommendations PT Discharge Recommendations SNF Rehab Transportation Needs at Discharge Wheelchair/Cabulance
[2023-08-10] MEDS: ASPIRIN EC 81 MG TABLET PO (09:11)
[2023-08-10] MEDS: NICOTINE 14 PATCH 14 MG TOP (09:11)
[2023-08-10] MEDS: DOCUSATE 100 MG CAPSULE PO (09:11)
[2023-08-10] MEDS: METOPROLOL IR 50 MG TABLET PO (09:11)
[2023-08-10] MEDS: ACETAMINOPHEN 325 MG TABLET 650 MG PO (09:11)
--- NOTE | 2023-08-10 10:43 | P.DS_ITS ---
History of Present Illness History of Present Illness Date Patient Seen: 08/10/23 Time Patient Seen: 08:40 Chief complaint: Fall after losing balance, unable to walk now Narrative: CC: unable to walk L femur fracture after GLF he is now POD #4 s/p repair by ortho and doing well. He is not requiring controlled pain meds - did not react well to them in any case - and is using a nicotine patch without smoking. Plan will be to go to [facility] for rehab then f/up as outpt. Daughter Arabella notes concern for some L sided weakness that may have contributed to fall - will benefit from outpt neuro consult. He is doing well this morning feels his hip is doing a bit better. appetite is good he is tolerating nicotine patch. Discharge Providers Provider Date of admission: 08/05/23 21:27 Discharge Date: 08/10/23 Consults: 08/05/23 22:47 Consult to Discharge Planning Routine Comment: Consult to Physical Therapy Evaluate & Treat Comment: Physician Instructions: Evaluate and Treat 08/06/23 16:40 Consult to Discharge Planning Routine Comment: Consult to Occupational Therapy Evaluate & Treat Comment: Physician Instructions: Evaluate and treat Consult to Physical Therapy Evaluate & Treat Comment: Physician Instructions: post op ALESSANDRA protocol Discharge provider: Vinicio Salgado MD Summary Hospital Course Discharge Diagnosis: #L hip fracture closed traumatic #Acute delirium of unclear etiology. #nicotine use disorder #Hypertension essential #Hyperlipidemia #Leukocytosis with neutrophilic predominance Hospital Course: Mr. Santoyo is a pleasant gentleman who lives alone. He sustained a ground level fall back onto his buttocks approx 8 days ago. Found it was not able to bear weight, tried to tough it out then eventually came in was found to have a hip fracture. This was repaired by ortho with good result however he did have some difficulty coming out of anesthesia with pain meds on board and was a bit confused for 24 hours before recovering well. He does smoke at home so he has been on a nicotine patch. He has not been requiring controlled pain meds actually doing pretty well with tylenol/ibuprofen. Per ortho he is to continue asa 81 bid for now. Due to deconditioning and living alone will be going to SNF/rehab for now. His daughter Arabella did raise concern for some mild L sided weakness noted by PT - will consider neurology referral as outpt. already on statin. Status at Discharge Cognitive/behavioral status at discharge: at baseline, oriented Functional status at discharge: uses cane/walker Overall status at discharge: patient is progressing back to baseline Exam Vital Signs (past 8 hours): - 08/10/23 03:00 08/10/23 08:00 Temperature 97.8 F 98.3 F Pulse Rate 75 87 Respiratory Rate 16 18 Blood Pressure 125/57 L 131/54 L Pulse Oximetry 97 98 Oxygen Flow Rate 0 0 Oxygen Delivery Method Room Air Oxygen Flow Rate 0 Narrative Exam Narrative: pleasant elder laying in bed Resp Other: clear to auscultation bilaterally Cardio Other: regular rate s1/s2 no pedal edema GI Other: soft nontender nondistended Extrem Other: L hip incisions under clean dry dressings, able to lift L leg up off mattress briefly, distal neurovascular intact Objective Labs 08/08/23 05:12 08/08/23 05:12 PFSH Social History household members: none Smoking Status: Current every day smoker Discharge Assessment & Plan Assessment and Plan Assessment: 72-year-old male sustained a ground level fall onto his buttocks and sustained a left hip fracture now s/p open reduction internal fixation POD #4. #L hip fracture closed traumatic Now s/p repair c/o ortho and doing better He was down for a while before coming in so there is some deconditioning ortho wants him on asa 81 bid for now #Acute delirium of unclear etiology. Much improved, no use of sedatives, pain controlled #nicotine use disorder nicotine patch #Hypertension essential Stable continue home meds #Hyperlipidemia Stable continue home meds #Leukocytosis with neutrophilic predominance Much improved after adequate abx tx ok to stop #L sided weakness noted by PT, may predate surgery, consider neurology f/up as outpt Dispo: pending improvement, possibly to rehab tomorrow PCP: Naomi MDM: daughter code: DNR Diet: general DVT: SCDs Discharge Plan Discharge Plan Patient Disposition: SNF Transfer to: [facility] Discharge orders & Medications Prescriptions: New acetaminophen 325 mg Tablet 650 mg PO Q6H PRN (Reason: Fever/Mild Pain (1-3)) Qty: 30 0RF nicotine 14 mg/24 hr Patch 24 Hour 14 mg topical DAILY Qty: 30 0RF aspirin 81 mg Tablet,Delayed Release (Dr/Ec) 81 mg PO BID Qty: 60 0RF ibuprofen 400 mg Tablet 400 mg PO Q4H PRN (Reason: Pain, Mild (1-3)) Qty: 30 0RF docusate sodium 100 mg Capsule 100 mg PO BID Qty: 30 0RF Continued metoprolol tartrate 50 mg Tablet 50 mg PO BID atorvastatin 40 mg Tablet 40 mg PO DAILY Discontinued aspirin 81 mg DAILY Follow up/Referrals: Rosanne Ozuna MD [Physician] - (Follow up outpatient Orthopedics in 2 weeks with DARLING ) Diet/Activity/Treatments Activity: Weightbearing as tolerated, posterior hip precautions Other treatments: Ice to hip as needed Skin/Wound/Dressing Care Dressing: Keep dressing clean and dry Visit Report/Discharge Packet Instructions: DI for Hip Replacement Stand Alone Forms: Patient Portal/API Quality VTE Deep Vein Thrombosis/Pulmonary Embolism Present on Admission: No
--- NOTE | 2023-08-10 10:53 | CM.DPC ---
DCP Continued Reviewed EMR and team rounds for pt?s medical status. Per Dr. Salgado, pt cleared for discharge upon acceptance at [facility]. Per RN Magnolia, pt has been tolerating nicotene patches and is still agreeable to discharging to SNF. Per Shaneka at [facility], pt is being accepted today at 1300, facility to transport pt. DCP notified GENNA Merida and pt. PASRR completed, awaiting dc summary and signed med list from MD. Plan: Pt to discharge to [facility] Rehab at ~1300, facility to transport. CM Team will continue to follow for coordination of discharge plans. ELSA Pereyra
--- NOTE | 2023-08-10 13:48 | PC.NURSE ---
Patient is A&OX3, slightly forgetful. VSS, afebrile on RA. He reports pain is controlled well. Aquacel dressing to L hip is C/D/I. He is assisted x1 to sit in the chair, slightly unsteady with FWW. Report called to [facility] this afternoon to Celi, no documented BM for patient during his hospital stay. He is transported via w/ch by facility designee, at approximately 1315 this afternoon with transport packet and all of his belongings.
== END 2023-08-10 13:15 | DRG 521 ==
LOC: ED 18:16 → AC 21:29
PROVIDERS: Emergency Medicine; Family Medicine; Orthopaedic Surgery; Admitting Provider Family Medicine; Emergency Provider Emergency Medicine; Referring Provider Emergency Medicine; Visit Provider Family Medicine
PROC: 0SRS0JZ Replacement of Left Hip Joint, Femoral Surface with Synthetic Substitute, Open Approach (ICD-10-PCS; CPT 27125; principal; 2023-08-06 13:00)
DX: S72.012A Unspecified intracapsular fracture of left femur, initial encounter for closed fracture (principal); G92.8 Other toxic encephalopathy; N39.0 Urinary tract infection, site not specified; I10 Essential (primary) hypertension; I25.10 Atherosclerotic heart disease of native coronary artery without angina pectoris; M25.562 Pain in left knee; F17.200 Nicotine dependence, unspecified, uncomplicated; E78.5 Hyperlipidemia, unspecified; R41.0 Disorientation, unspecified; D72.828 Other elevated white blood cell count; W18.30XA Fall on same level, unspecified, initial encounter; Z88.0 Allergy status to penicillin; Z66 Do not resuscitate; Z95.5 Presence of coronary angioplasty implant and graft; T40.2X5A Adverse effect of other opioids, initial encounter
CPT/HCPCS: 36415; 70450; 71045; 72170; 72192; 73502; 73560; 80048; 80053; 81001; 82550; 82607; 82746; 83690; 83735; 84484; 85014; 85018; 85025; 85610; 85730; 93005; 97116; 97129; 97130; 97163; 97166; 97530; 97535; 99284; 99285; C1776; C9290; J0171; J0690; J0696; J1100; J1170; J1630; J2060; J2274; J2405; J2704

== ENCOUNTER → 2023-11-10 10:48 | Outpatient (CLI) | payer MEDICARE, SELFPAY ==
--- NOTE | 2023-11-10 10:50 | DI.CT.S_ITS ---
PROCEDURE: CT HEAD/BRAIN WO CON INDICATIONS: HYDROCEPHALUS TECHNIQUE: Noncontrast 4.5 mm thick angled axial sections acquired from the foramen magnum to the vertex, with coronal and sagittal reformats. For radiation dose reduction, the following was used: automated exposure control, adjustment of mA and/or kV according to patient size. COMPARISON: [facility], CT, CT HEAD/BRAIN WO CON, 08/05/2023, 18:49. FINDINGS: Image quality: Diagnostic. CSF spaces: Basal cisterns are patent. No extra-axial fluid collections. Prominent size of lateral ventricles further increased in transverse dimension compared to 08/05/2023 study now measures up to 2.3 cm in with on the right side and 2.5 cm in with on the left side. Prominent size of 3rd and 4th ventricles are also seen. Brain: No intracranial bleeds or masses. There is cerebral volume loss for age, with resultant ventricular and sulcal prominence. There are periventricular and deep white matter chronic small vessel ischemic changes. There is intracranial internal carotid artery atherosclerosis. Skull and face: Calvarium and visualized facial bones appear intact, without suspicious lesions. Sinuses: Visualized sinuses and mastoids are clear. IMPRESSION: 1. Prominent size of ventricles out of proportion to per 8 the extent of cerebral cortical volume loss. Finding has progressed since 08/05/2023, and is concerning for normal pressure hydrocephalus , suggest clinical correlation. 2. No acute intracranial bleed, midline shift or mass effect. Dictated by: Chandan Mary M.D. on 11/10/2023 at 12:03 Approved by: Chandan Mary M.D. on 11/10/2023 at 12:06
== END ==
LOC: CT 10:49
PROVIDERS: PCP Family Medicine; Referring Provider Family Medicine; Visit Provider Family Medicine
DX: G91.8 Other hydrocephalus (principal)
CPT/HCPCS: 70450

== ENCOUNTER → 2023-12-05 13:50 | Outpatient (CLI) | payer MEDICARE, SELFPAY ==
[2023-12-05 14:10] LABS: Add Manual Diff / Slide Review NO; Basophils Absolute Auto 100 /uL (0-100); Basophils Percent Auto 1.1 % (0-2); Eosinophils Absolute Auto 300 /uL (0-450); Eosinophils Percent Auto 2.2 % (2-4); Hemoglobin 14.1 g/dL (13.5-17.5); Lymphocytes Absolute Auto 2000 /uL (1100-4500); Lymphocytes Percent Auto 17.7 % (25-40); Mean Corpuscular HGB Conc 33.6 % (30-36); Mean Corpuscular Hemoglobin 30.5 PG (26-34); Mean Corpuscular Volume 90.7 fL (80-100); Monocytes Absolute Auto 1000 /uL (0-900); Monocytes Percent Auto 8.8 % (3-14); Neutrophils Absolute Auto 8100 /uL (1500-7000); Neutrophils Percent Auto 70.2 % (50-75); Platelet Count 188 X10^3/uL (150-400); Red Blood Cell Count 4.62 X10^6/uL (4.5-5.9); Red Cell Distribution Width 14.6 % (11.6-14.8); White Blood Cell Count 11.5 X10^3/uL (4.5-11.0)
[2023-12-05 14:35] LABS: Prothrombin Time 11.7 SECONDS (9.4-12.5)
[2023-12-05 14:37] LABS: PTT Partial Thromboplastin Tim 37 SECONDS (25.1-36.5)
== END ==
PROVIDERS: PCP Family Medicine; Referring Provider Radiology Diagnostic Radiology; Visit Provider Radiology Diagnostic Radiology
DX: G91.9 Hydrocephalus, unspecified (principal)
CPT/HCPCS: 36415; 85025; 85610; 85730

== ENCOUNTER 2023-12-12 11:40 | Outpatient (CLI) | payer MEDICARE, SELFPAY ==
--- NOTE | 2023-12-12 | DI.RAD.S_ITS ---
PROCEDURE: FL GUIDED LUMBAR PUNCTURE LP INDICATIONS: (Idiopathic) normal pressure hydrocephalus COMPARISON: [facility], CT, CT PEL WO CON, 08/05/2023, 20:06. [facility], CT, CT HEAD/BRAIN WO CON, 11/10/2023, 10:55. TECHNIQUE: The indications, alternatives, benefits, risks, and complications were explained to the patient. Written informed consent was obtained and placed in the chart. The patient was placed in a prone position on the fluoroscopy table, and a level was chosen for percutaneous access under fluoroscopic guidance. The site was prepped and draped in a sterile fashion. After local anaesthetic, a spinal needle was then used to enter the intrathecal space. Due to the excessive spinous process hypertrophy and facet arthropathy, multiple attempts to obtain fluid under fluoroscopic guidance were unsuccessful; a viable, safe window could not be identified. The needle was then withdrawn, and a bandage applied to the puncture site. FINDINGS: Puncture level: L3-L4 and L4-L5 Needle: 22 gauge spinal needle IMPRESSION: Technically unsuccessful fluoroscopically guided lumbar puncture, due to the excessive lumbar spinous process hypertrophy and facet arthropathy. Dictated by: Raf Dao M.D. on 12/12/2023 at 16:35 Approved by: Raf Dao M.D. on 12/12/2023 at 16:38
[2023-12-12 12:46] VITALS: BP 115/58; PULSE 59; RESP 16; TEMP 36.2; O2SAT 100
[2023-12-12] MEDS: LIDOCAINE 1% 20 ML INJ (13:25)
[2023-12-12 14:02] VITALS: BP 127/60; PULSE 69; RESP 16; O2SAT 99
[2023-12-12 14:12] VITALS: BP 116/55; PULSE 16; RESP 99
[2023-12-12 14:22] VITALS: BP 112/58; PULSE 65; RESP 16; O2SAT 96
[2023-12-12 14:33] VITALS: BP 141/68; PULSE 63; RESP 16; O2SAT 96
== END 2023-12-12 14:55 | disposition home or self-care (01) ==
LOC: RAD 11:41
PROVIDERS: PCP Family Medicine; Referring Provider Family Medicine; Visit Provider Family Medicine
DX: G91.2 (Idiopathic) normal pressure hydrocephalus (principal); M47.816 Spondylosis without myelopathy or radiculopathy, lumbar region
CPT/HCPCS: 62328

== ENCOUNTER → 2024-10-24 13:48 | Outpatient (CLI) | payer MEDICARE, SELFPAY ==
--- NOTE | 2024-10-24 13:51 | DI.ECHO.S_ITS ---
[facility] : : [address] : : [place] : : [id number] : : Phone: [phone] Echocardiogram Report + + :Name: EVAN BROTHERS Study Date: 10/24/2024 Height: 74 in : :Hospital ReadingLocation: Weight: 175 lb : : Gender: Male BSA: 2.1 m2 : :: 1950 Age: 74 yrs BP: 161/126 mmHg: :Reason For Study: CAD : :Ordering Physician: JULIO C, : :YANETH Performed By: Bogdan Gonzalez : :Referring: YANETH COLE : + + Interpretation Summary The ejection fraction is estimated to be 55-60%. The right ventricle is normal in size and function. There is no significant valvular heart disease. Procedure: A two-dimensional transthoracic echocardiogram with color flow and Doppler was performed. The study quality was technically adequate. There is no prior echocardiogram noted for this patient. The patient was in atrial fibrillation with heart rates between 62-94 bpm during the exam. Left Ventricle: The left ventricle is normal in size. There is normal left ventricular wall thickness. There is no ventricular septal defect visualized. The ejection fraction is estimated to be 55-60%. There are no focal wall motion abnormalities. Diastolic function could not be accurately assessed due to atrial fibrillation. Right Ventricle: The right ventricle is normal in size and function. Atria: The left atrial size is normal. Right atrial size is normal. There is no Doppler evidence for an interatrial shunt. Mitral Valve: The mitral valve leaflets appear mildly thickened. The mitral valve leaflets are mildly calcified. There is trace mitral regurgitation. Aortic Valve: The aortic valve is not well visualized. No aortic regurgitation is present. Tricuspid Valve: No tricuspid regurgitation. Pulmonic Valve: The pulmonic valve is not well visualized. There is no pulmonic valvular regurgitation. Great Vessels: The aortic root is normal size. The ascending aorta is mildly enlarged. The pulmonary artery is normal size. The IVC is of normal diameter and collapses greater than 50% with a sniff. This suggests a low right atrial pressure of 3 mm Hg. Pericardium/ Pleura There is no pericardial effusion. MMode/2D Measurements & Calculations LVIDd: 4.4 cm LVOT diam: 2.0 cm LVIDs: 2.9 cm Ao root diam: 3.6 cm FS: 34.5 % asc Aorta Diam: 3.7 cm EPSS: 0.78 cm Ao Arch Diam (Prox Trans): 2.2 cm IVSd: 1.0 cm LVPWd: 1.0 cm LV cerda. diameter/BSA (cm/m^2): 2.2 LV sys. diameter/BSA (cm/m^2): 1.4 LA A2 area: 21.1 cm2 RA long axis: 3.7 cm LA A4 area: 12.1 cm2 RA area: 9.3 cm2 LA length (vol): 4.6 cm RA vol: 19.9 ml LA vol: 47.6 ml RA : 9.7 ml/m2 LA vol index: 23.2 ml/m2 IVC diam: 1.4 cm RVD1 (basal): 2.8 cm RVD2 (mid): 2.0 cm TAPSE: 2.0 cm Doppler Measurements & Calculations Ao V2 max: 158.2 cm/sec LVOT Max Rashi: 102.1 cm/sec Ao V2 mean: 91.5 cm/sec LV V1 max P.2 mmHg Ao max P.0 mmHg LV V1 VTI: 19.7 cm Ao mean P.1 mmHg JHONNY(I,D): 2.3 cm2 Ao V2 VTI: 27.2 cm JHONNY(V,D): 2.0 cm2 sev ratio: 0.73 JHONNY indexed to BSA (cm^2/m^2): 1.1 MV E max rashi: 62.0 cm/sec PA V2 max: 100.2 cm/sec MV A max rashi: 56.5 cm/sec PA V2 mean: 68.2 cm/sec MV E/A: 1.1 PA mean P.1 mmHg Med Peak E' Rashi: 5.9 cm/sec PA pr(Accel): 39.6 mmHg E/E' med: 10.5 Lat Peak E' Rashi: 4.8 cm/sec E/E' lat: 12.8 E/e' average: 11.7 MV dec time: 0.25 sec SV(LVOT): 62.4 ml Reading Physician:12:12 PM
== END ==
LOC: ECHO 13:50
PROVIDERS: PCP Family Medicine; Referring Provider Internal Medicine Cardiovascular Disease; Visit Provider Internal Medicine Cardiovascular Disease
DX: I25.10 Atherosclerotic heart disease of native coronary artery without angina pectoris (principal); I77.89 Other specified disorders of arteries and arterioles
CPT/HCPCS: 93306